=== PATIENT | female | born 1995 | race American Indian/Alaskan Native ===

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

== ENCOUNTER 2017-01-27 19:11 | Inpatient (IN) | payer MEDICAID ==
[2017-01-27] MEDS ORDERED: NORCO 5/325 ONE (20:28)
[2017-01-27] MEDS ORDERED: NORCO 5/325 PO ONE (20:29)
[2017-01-27 20:49] LABS: Basophils % (Auto) 0.3 % (0.0-1.8); Eosinophils % (Auto) 1.4 % (0.0-4.3); Hematocrit 38.4 % (30.3-42.9); Hemoglobin 12.3 gm/dl (10.1-14.3); Mean Corpuscular HGB Conc 32 % (30-34); Mean Corpuscular Hemoglobin 27 pg (28-32); Mean Corpuscular Volume 85 fl (79-97); Platelet Count 221 K/mm3 (140-440); Red Blood Count 4.52 M/mm3 (3.65-5.03); Red Cell Distribution Width 12.6 % (13.2-15.2); White Blood Count 13.2 K/mm3 (4.5-11.0)
[2017-01-27 21:04] LABS: Alanine Aminotransferase 33 units/L (7-56); Albumin 4.3 g/dL (3.9-5); Albumin/Globulin Ratio 1.3 %; Alkaline Phosphatase 65 units/L (35-129); Anion Gap 19 mmol/L; BUN/Creatinine Ratio 24.28; Blood Urea Nitrogen 17 mg/dL (7-17); Calcium 8.9 mg/dL (8.4-10.2); Carbon Dioxide 25 mmol/L (22-30); Chloride 99.3 mmol/L (98-107); Glucose 88 mg/dL (65-100); Lipase 14 units/L (13-60); Potassium 3.6 mmol/L (3.6-5.0); Sodium 140 mmol/L (137-145); Total Protein 7.7 g/dL (6.3-8.2)
--- NOTE | 2017-01-27 21:46 | Emergency Department Report ---
HPI - General Chief Complaint: Abdominal Pain Time Seen by Provider: 01/27/17 21:35 - HPI HPI: This is a 21-year-old -Italian female who presents to the emergency department from home with complaint of a 24-hour history of left-sided flank pain that starts in the back and wraps around towards the abdomen. It has been intermittent and the patient has been trying to sleep it off but she keeps waking up with this discomfort. It is been associated with nausea and 3 episodes of vomiting. She tried ibuprofen for her discomfort without any relief. The patient said that she had some kidney infection versus problem a few months ago when she was with her daughter and says that she was told that the fetus at that time was in a weird position that was pressing up on her kidney and that she would most likely need some type of surgical intervention and what sounds like a nephrostomy tube. However the patient refused this and left the hospital and everything resolved on its own. Since yesterday the patient has been having some burning and pain with urination and some difficulty urinating. She denies any fever, hematuria, vaginal bleeding, vaginal discharge. She says she is currently on her menstrual cycle. She does not have a primary care physician. No recent travel or sick contacts at home. ED Past Medical Hx - Past Medical History Hx Hypertension: No Hx Congestive Heart Failure: No Hx Diabetes: No Hx Deep Vein Thrombosis: No Hx Renal Disease: Yes (hospitalized- pyelonephritis in x 4 days) Hx Sickle Cell Disease: No Hx Seizures: No Hx Asthma: No Hx COPD: No Hx HIV: No Additional medical history: Vaginal 7 weeks ago - Social History Smoking Status: Current Every Day Smoker - Medications Home Medications: Home Medications Medication Instructions Recorded Confirmed Last Taken Type No Known Home Medications [No 01/27/17 01/27/17 Unknown History Reported Home Medications] ED Review of Systems ROS: Stated complaint: FLANK PAIN/VOMITING Other details as noted in HPI Comment: All other systems reviewed and negative Constitutional: denies: chills, fever Eyes: denies: eye pain, eye discharge, vision change ENT: denies: ear pain, throat pain Respiratory: denies: cough, shortness of breath, wheezing Cardiovascular: denies: chest pain, palpitations Gastrointestinal: abdominal pain, nausea, vomiting Genitourinary: dysuria. denies: discharge Musculoskeletal: back pain. denies: arthralgia Skin: denies: rash, lesions Neurological: denies: headache, weakness, paresthesias Physical Exam - Physical Exam Vital Signs: Vital Signs 01/27/17 01/27/17 01/27/17 19:30 20:18 20:32 Temperature 98.3 F 98.3 F Pulse Rate 100 H 100 H Respiratory 20 20 20 Rate Blood Pressure 127/79 Blood Pressure 127/79 [Right] O2 Sat by Pulse 100 100 Oximetry 01/27/17 01/27/17 21:26 21:27 Temperature 98.5 F Pulse Rate Respiratory 18 Rate Blood Pressure Blood Pressure [Right] O2 Sat by Pulse 98 Oximetry Physical Exam: GENERAL: The patient is well-developed well-nourished. HEENT: Normocephalic. Atraumatic. Extraocular motions are intact. Patient has moist mucous membranes. NECK: Supple. Trachea is midline. CHEST/LUNGS: Clear to auscultation. There is no respiratory distress noted. HEART/CARDIOVASCULAR: Regular. There is no tachycardia. There is no gallop rub or murmur. ABDOMEN: Abdomen is soft. There is reproducible left lower quadrant abdominal and left flank pain to palpation. No guarding or rebound tenderness. Patient has normal bowel sounds. There is no abdominal distention. SKIN: Skin is warm and dry. NEURO: The patient is awake, alert, and oriented. The patient is cooperative. The patient has no focal neurologic deficits. The patient has normal speech. MUSCULOSKELETAL: There is no tenderness or deformity. There is no limitation range of motion. There is no evidence of acute injury. BACK: No midline thoracic or lumbar tenderness to palpation or deformity. There is positive left-sided CVA tenderness to palpation. ED Course Vital Signs 01/27/17 01/27/17 01/27/17 19:30 20:18 20:32 Temperature 98.3 F 98.3 F Pulse Rate 100 H 100 H Respiratory 20 20 20 Rate Blood Pressure 127/79 Blood Pressure 127/79 [Right] O2 Sat by Pulse 100 100 Oximetry 01/27/17 01/27/17 21:26 21:27 Temperature 98.5 F Pulse Rate Respiratory 18 Rate Blood Pressure Blood Pressure [Right] O2 Sat by Pulse 98 Oximetry ED Medical Decision Making - Lab Data Result diagrams: 01/27/17 20:35 01/27/17 20:35 - Radiology Data Radiology results: report reviewed EXAM: US RENAL BILAT HISTORY: left flank pain TECHNIQUE: Real-time sonography was performed of the kidneys and images are submitted for interpretation. PRIORS: None. FINDINGS: The right kidney appears normal measuring 11.2 x 4.3 x 5.2 cm. The spleen appears normal. There is moderate left hydronephrosis. The left kidney measures 12.2 x 6.5 x 6.1 cm. There are no focal renal lesions. IMPRESSION: Moderate left hydronephrosis. PROCEDURE: CT ABDOMEN PELVIS W CON TECHNIQUE: Computerized axial tomography of the abdomen and pelvis was performed after the IV injection of iodinated nonionic contrast. HISTORY: Flank pain COMPARISON: No prior studies are available for comparison. FINDINGS: Visualized lower thorax: No significant abnormality. Liver: Normal size and attenuation. Spleen: Normal size and attenuation. Gallbladder and biliary system: Normal. Pancreas: Normal. Adrenals: Normal. Kidneys: There is significant left hydronephrosis and hydroureter down to a 5 millimeter stone at the left ureteral vesical junction. The right collecting system is normal.. GI tract: The stomach is normal. The small bowel has a normal caliber. No obstruction, ileus or enteritis. There is significant fecal debris throughout the colon. Is normal.. Lymph nodes and mesentery: Normal. Vasculature: Normal. Bladder: Normal. Reproductive organs: The uterus is normal. There is minimal fluid in the lower pelvis. There are follicular cysts on each ovary.. Peritoneum: No free fluid. Musculoskeletal structures: No significant abnormality. Other: None. IMPRESSION: Significant left hydronephrosis and hydroureter down to a 5 millimeter stone at the left ureteral vesical junction. - Medical Decision Making 21-year-old female presents to the emergency department with some left-sided flank, abdominal and back pain, dysuria, trouble urinating, nausea and some vomiting since yesterday. Patient doesn't fact have a significant urinary tract infection. Ultrasound did not show any calculus but did show significant left-sided hydronephrosis. CT was done that showed a 5 mm stone that was obstructing with ureteral dilation and hydronephrosis that was significant. The patient has a very small habitus so a 5 mm stone may be more obstructing and in someone larger. She is to have discomfort despite the pain medication, IV fluid. For this reason the patient will be admitted to hospital and urology will be consult.. Patient was accepted for admission by the hospitalist, Dr. Rivero. - Differential Diagnosis hydronephrosis, nephrolithiasis, pyelonephritis, colitis Critical Care Time: No Critical care attestation.: If time is entered above; I have spent that time in minutes in the direct care of this critically ill patient, excluding procedure time. ED Disposition Clinical Impression: Nephrolithiasis, Flank pain Hydronephrosis Qualifiers: Hydronephrosis type: with ureteral calculous obstruction Qualified Code(s): N13.2 - Hydronephrosis with renal and ureteral calculous obstruction UTI (urinary tract infection) Qualifiers: Urinary tract infection type: acute cystitis Hematuria presence: with hematuria Qualified Code(s): N30.01 - Acute cystitis with hematuria Nausea & vomiting Qualifiers: Vomiting type: unspecified Vomiting Intractability: non-intractable Qualified Code(s): R11.2 - Nausea with vomiting, unspecified Disposition: -09 OP ADMIT IP TO THIS HOSP Is pt being admited?: Yes Condition: Stable Time of Disposition: 03:35
[2017-01-27 22:03] LABS: Bacteria,Urine 2+ /HPF (Negative); Bilirubin,Urine NEG (Negative); Blood,Urine LG (Negative); Ketones,Urine 20 mg/dL (Negative); Leukocyte Esterase,Urine LG (Negative); Mucus,Urine 3+ /HPF; Nitrite,Urine POS (Negative); Protein,Urine >500 mg/dL (Negative); RBC,Urine > 182.0 /HPF (0.0-6.0); Urobilinogen,Urine < 2.0 mg/dL (<2.0); WBC,Urine > 182.0 /HPF (0.0-6.0)
--- NOTE | 2017-01-27 22:30 | Ultrasound Report ---
FINAL REPORT EXAM: US RENAL BILAT HISTORY: left flank pain TECHNIQUE: Real-time sonography was performed of the kidneys and images are submitted for interpretation. PRIORS: None. FINDINGS: The right kidney appears normal measuring 11.2 x 4.3 x 5.2 cm. The spleen appears normal. There is moderate left hydronephrosis. The left kidney measures 12.2 x 6.5 x 6.1 cm. There are no focal renal lesions. IMPRESSION: Moderate left hydronephrosis.
[2017-01-27] MEDS ORDERED: ROCEPHIN/NS 1 GM/50 ML 1 GM/50 ML BAG IV ONE (22:35)
[2017-01-27] MEDS ORDERED: NACL ONE (22:48)
[2017-01-27] MEDS ORDERED: MORPHINE IV ONE (23:54)
--- NOTE | 2017-01-28 00:47 | Cat Scan Report ---
FINAL REPORT PROCEDURE: CT ABDOMEN PELVIS W CON TECHNIQUE: Computerized axial tomography of the abdomen and pelvis was performed after the IV injection of iodinated nonionic contrast. HISTORY: Flank pain COMPARISON: No prior studies are available for comparison. FINDINGS: Visualized lower thorax: No significant abnormality. Liver: Normal size and attenuation. Spleen: Normal size and attenuation. Gallbladder and biliary system: Normal. Pancreas: Normal. Adrenals: Normal. Kidneys: There is significant left hydronephrosis and hydroureter down to a 5 millimeter stone at the left ureteral vesical junction. The right collecting system is normal.. GI tract: The stomach is normal. The small bowel has a normal caliber. No obstruction, ileus or enteritis. There is significant fecal debris throughout the colon. Is normal.. Lymph nodes and mesentery: Normal. Vasculature: Normal. Bladder: Normal. Reproductive organs: The uterus is normal. There is minimal fluid in the lower pelvis. There are follicular cysts on each ovary.. Peritoneum: No free fluid. Musculoskeletal structures: No significant abnormality. Other: None. IMPRESSION: Significant left hydronephrosis and hydroureter down to a 5 millimeter stone at the left ureteral vesical junction.
[2017-01-28] MEDS ORDERED: NACL 0.9% 1000 ML 1,000 ML IV ONE (01:02)
[2017-01-28] MEDS ORDERED: NACL 0.9% 1000 ML 1,000 ML ONE (01:27)
[2017-01-28] MEDS ORDERED: MORPHINE IV ONE (04:12)
--- NOTE | 2017-01-28 04:12 | History and Physical Report ---
History of Present Illness Date of examination: 01/28/17 Date of admission: 01/28/17 01:01 Chief complaint: Left Flank pain for 1 day. History of present illness: 21-year-old -[place] female who presents to the emergency department from home with complaint of a 24-hour history of left-sided flank pain that radiates to the back . It has been intermittent and the patient has been trying to sleep it off but she keeps waking up with this discomfort. It is been associated with nausea and 3 episodes of vomiting.Pain is 10 on scale of 1 to 10. She tried ibuprofen for her discomfort without any relief. The patient said that she had some kidney infection versus problem a few months ago when she was with her daughter and says that she was told that the fetus at that time was in a weird position that was pressing up on her kidney and that she would most likely need some type of surgical intervention and what sounds like a nephrostomy tube. However the patient refused this and left the hospital and everything resolved on its own. Since yesterday the patient has been having some burning and pain with urination and some difficulty urinating. She denies any fever, hematuria, vaginal bleeding, vaginal discharge. She says she is currently on her menstrual cycle. She does not have a primary care physician. No recent travel or sick contacts at home. ED Past Medical Hx - Past Medical History Hx Hypertension: No Hx Congestive Heart Failure: No Hx Diabetes: No Hx Deep Vein Thrombosis: No Hx Renal Disease: Yes (hospitalized- pyelonephritis in x 4 days) Hx Sickle Cell Disease: No Hx Seizures: No Hx Asthma: No Hx COPD: No Hx HIV: No Additional medical history: Vaginal 7 weeks ago - Social History Smoking Status: Current Every Day Smoker PSH none FH HTN - Medications Home Medications: Home Medications Medication Instructions Recorded Confirmed Last Taken Type No Known Home Medications [No 01/27/17 01/27/17 Unknown History Reported Home Medications] ED Review of Systems ROS: Stated complaint: FLANK PAIN/VOMITING Other details as noted in HPI Comment: All other systems reviewed and negative Constitutional: denies: chills, fever Eyes: denies: eye pain, eye discharge, vision change ENT: denies: ear pain, throat pain Respiratory: denies: cough, shortness of breath, wheezing Cardiovascular: denies: chest pain, palpitations Gastrointestinal: abdominal pain, nausea, vomiting Genitourinary: dysuria. denies: discharge Musculoskeletal: back pain. denies: arthralgia Skin: denies: rash, lesions Neurological: denies: headache, weakness, paresthesias Past History Past Medical History: other (Pyelonephritis x1) Past Surgical History: No surgical history Social history: smoking (ppd) Medications and Allergies Allergies Allergy/AdvReac Type Severity Reaction Status Date / Time No Known Allergies Allergy Verified 04/13/16 00:06 Home Medications Medication Instructions Recorded Confirmed Last Taken Type No Known Home Medications [No 01/27/17 01/27/17 Unknown History Reported Home Medications] Active Meds: Active Medications Sodium Chloride (Nacl 0.9% 1000 Ml) 1,000 mls @ 125 mls/hr IV ONCE ONE Stop: 01/28/17 09:01 Last Admin: 01/28/17 01:35 Dose: 125 mls/hr Review of Systems All systems: negative Exam - Constitutional Vitals: Temp Pulse Resp BP Pulse Ox 98.4 F 85 18 114/74 100 01/28/17 02:09 01/28/17 02:01/28/17 02:09 01/28/17 02:01/28/17 02:09 General appearance: Present: no acute distress, well-nourished - EENT Eyes: Present: PERRL ENT: hearing intact, clear oral mucosa - Neck Neck: Present: supple, normal ROM - Respiratory Respiratory effort: normal Respiratory: bilateral: CTA - Cardiovascular Heart rate: 76 Rhythm: regular Heart Sounds: Present: S1 & S2. Absent: rub, click - Extremities Extremities: pulses symmetrical, No edema Peripheral Pulses: within normal limits - Abdominal General gastrointestinal: Present: soft, non-tender, non-distended, normal bowel sounds Female genitourinary: Present: normal - Rectal Rectal Exam: deferred - Integumentary Integumentary: Present: clear, warm, dry - Musculoskeletal Musculoskeletal: gait normal, strength equal bilaterally - Psychiatric Psychiatric: appropriate mood/affect, intact judgment & insight - Neurologic Neurologic: CNII-XII intact, moves all extremities - Allied Health Allied health notes reviewed: nursing, case management Results - Labs CBC & Chem 7: 01/27/17 20:35 01/27/17 20:35 Labs: Laboratory Last Values WBC 13.2 K/mm3 (4.5-11.0) H 01/27/17 20:35 RBC 4.52 M/mm3 (3.65-5.03) 01/27/17 20:35 Hgb 12.3 gm/dl (10.1-14.3) 01/27/17 20:35 Hct 38.4 % (30.3-42.9) 01/27/17 20:35 MCV 85 fl (79-97) 01/27/17 20:35 MCH 27 pg (28-32) L 01/27/17 20:35 MCHC 32 % (30-34) 01/27/17 20:35 RDW 12.6 % (13.2-15.2) L 01/27/17 20:35 Plt Count 221 K/mm3 (140-440) 01/27/17 20:35 Lymph % (Auto) 11.6 % (13.4-35.0) L 01/27/17 20:35 Pre[place] % (Auto) 7.7 % (0.0-7.3) H 01/27/17 20:35 Eos % (Auto) 1.4 % (0.0-4.3) 01/27/17 20:35 Baso % (Auto) 0.3 % (0.0-1.8) 01/27/17 20:35 Lymph # 1.5 K/mm3 (1.2-5.4) 01/27/17 20:35 Preble # 1.0 K/mm3 (0.0-0.8) H 01/27/17 20:35 Eos # 0.2 K/mm3 (0.0-0.4) 01/27/17 20:35 Baso # 0.0 K/mm3 (0.0-0.1) 01/27/17 20:35 Seg Neutrophils % 79.0 % (40.0-70.0) H 01/27/17 20:35 Seg Neutrophils # 10.4 K/mm3 (1.8-7.7) H 01/27/17 20:35 Sodium 140 mmol/L (137-145) 01/27/17 20:35 Potassium 3.6 mmol/L (3.6-5.0) 01/27/17 20:35 Chloride 99.3 mmol/L (98-107) 01/27/17 20:35 Carbon Dioxide 25 mmol/L (22-30) 01/27/17 20:35 Anion Gap 19 mmol/L 01/27/17 20:35 BUN 17 mg/dL (7-17) 01/27/17 20:35 Creatinine 0.7 mg/dL (0.7-1.2) 01/27/17 20:35 Estimated GFR > 60 ml/min 01/27/17 20:35 BUN/Creatinine Ratio 24.28 % 01/27/17 20:35 Glucose 88 mg/dL (65-100) 01/27/17 20:35 Calcium 8.9 mg/dL (8.4-10.2) 01/27/17 20:35 Total Bilirubin 0.80 mg/dL (0.1-1.2) 01/27/17 20:35 AST 27 units/L (5-40) 01/27/17 20:35 ALT 33 units/L (7-56) 01/27/17 20:35 Alkaline Phosphatase 65 units/L (35-129) 01/27/17 20:35 Total Protein 7.7 g/dL (6.3-8.2) 01/27/17 20:35 Albumin 4.3 g/dL (3.9-5) 01/27/17 20:35 Albumin/Globulin Ratio 1.3 % 01/27/17 20:35 Lipase 14 units/L (13-60) 01/27/17 20:35 HCG, Qual Negative (Negative) 01/27/17 20:35 Urine Color Red (Yellow) 01/27/17 21:42 Urine Turbidity Turbid (Clear) 01/27/17 21:42 Urine pH 6.0 (5.0-7.0) 01/27/17 21:42 Ur Specific [place] 1.022 (1.003-1.030) 01/27/17 21:42 Urine Protein >500 mg/dL (Negative) 01/27/17 21:42 Urine Glucose (UA) Neg mg/dL (Negative) 01/27/17 21:42 Urine Ketones 20 mg/dL (Negative) 01/27/17 21:42 Urine Blood Lg (Negative) 01/27/17 21:42 Urine Nitrite Pos (Negative) 01/27/17 21:42 Urine Bilirubin Neg (Negative) 01/27/17 21:42 Urine Urobilinogen < 2.0 mg/dL (<2.0) 01/27/17 21:42 Ur Leukocyte Esterase Lg (Negative) 01/27/17 21:42 Urine WBC (Auto) > 182.0 /HPF (0.0-6.0) H 01/27/17 21:42 Urine RBC (Auto) > 182.0 /HPF (0.0-6.0) 01/27/17 21:42 Urine Bacteria (Auto) 2+ /HPF (Negative) 01/27/17 21:42 Urine WBC Clumps 3+ /HPF 01/27/17 21:42 Urine Mucus 3+ /HPF 01/27/17 21:42 Short CBC 01/27/17 Range/Units 20:35 WBC 13.2 H (4.5-11.0) K/mm3 Hgb 12.3 (10.1-14.3) gm/dl Hct 38.4 (30.3-42.9) % Plt Count 221 (140-440) K/mm3 BMP 01/27/17 20:35 Sodium 140 Potassium 3.6 Chloride 99.3 Carbon Dioxide 25 BUN 17 Creatinine 0.7 Glucose 88 Calcium 8.9 Liver Function 01/27/17 Range/Units 20:35 Total Bilirubin 0.80 (0.1-1.2) mg/dL AST 27 (5-40) units/L ALT 33 (7-56) units/L Alkaline Phosphatase 65 (35-129) units/L Albumin 4.3 (3.9-5) g/dL Urine 01/27/17 Range/Units 21:42 Urine Color Red (Yellow) Urine pH 6.0 (5.0-7.0) Ur Specific [place] 1.022 (1.003-1.030) Urine Protein >500 (Negative) mg/dL Urine Glucose (UA) Neg (Negative) mg/dL - Imaging and Cardiology CT scan - abdomen: report reviewed (significant left hydronephrosis and hydroureter down to a 5 mm stone at the left utero vesicle junction.) Imaging and Cardiology: Renal ultrasound shows moderate left hydronephrosis Assessment and Plan Advance Directives: Yes (full code) VTE prophylaxis?: Chemical Plan of care discussed with patient/family: Yes - Patient Problems (1) Hydronephrosis Current Visit: Yes Status: Acute Qualifiers: Hydronephrosis type: with ureteral calculous obstruction Qualified Code(s) : N13.2 - Hydronephrosis with renal and ureteral calculous obstruction Plan to address problem: Left hydronephrosis secondary to renal calculus at uro vesical junction. Renal calculus is about 5 mm in size. Patient also has urinary tract infection. Patient may need urological intervention. We will try IV fluids and IV Dilaudid for the time being. Urology consult by Dr. Iraheta and Dr. Riddle requested. (2) UTI (urinary tract infection) Current Visit: Yes Status: Acute Qualifiers: Urinary tract infection type: acute cystitis Hematuria presence: without hematuria Indwelling urinary catheter type: I Encounter type: E Qualified Code(s): N30.00 - Acute cystitis without hematuria Plan to address problem: IV Rocephin 1 g IV piggyback every 24 hours pending cultures. (3) Nicotine dependence Current Visit: Yes Status: Acute Qualifiers: Nicotine product type: cigarettes Substance use status: S Plan to address problem: Nicotine patch ordered and patient counseled. (4) DVT prophylaxis Current Visit: Yes Status: Acute Plan to address problem: Lovenox 40 mg subcutaneous started.
[2017-01-28] MEDS ORDERED: DULCOLAX PR PRN (04:30)
[2017-01-28] MEDS ORDERED: AMBIEN PO PRN (04:30)
[2017-01-28] MEDS ORDERED: MILK OF MAGNESIA PO PRN (04:30)
[2017-01-28] MEDS ORDERED: TYLENOL PO PRN (04:30)
--- NOTE | 2017-01-28 07:53 | Admit Criteria Form ---
Admission Criteria Documentation: RENAL COLIC AND KIDNEY STONES Clinical Indications for Admission to Inpatient Care ( Place 'X' for any and all applicable criteria): Admission is indicated for ANY ONE of the following (1)(2)(3)(4): [X]I. Inpatient admission required rather than observation care (Also use Renal Colic and Kidney Stones: Observation Care Criteria as appropriate) because of ANY ONE of the following: [X]a) Severe pain requiring acute inpatient management [ ]b) Urinary tract infection identified [ ]c) Vomiting that is severe or persistent [ ]d) IV fluid required rather than oral rehydration to replace significant ongoing (eg, for greater than 24 hours) losses (greater than 200 mL/hr or 3 L/m2 per day) [ ]e) Percutaneous or open drainage (eg, abscess, biliary tract) procedures [ ]f) Other condition, treatment or monitoring requiring inpatient admission [ ]II. Impending acute renal failure [ ]III. Bilateral obstruction [ ]IV. Single kidney with obstruction [ ]V. Transplanted kidney with obstruction [ ]. Possible open surgical procedure needed (eg, pyonephrosis, stone removal not amendable to other means) [ ]VII. Hemodynamic instability Extended stay beyond goal length of stay may be needed for(2)(3)(31): [ ]a) Failed initial stone removal (32) [ ]b) Pyonephrosis [ ]c) Obstructive uropathy with urinary tract infection [ ]d) Procedure complications [ ]e) Comorbidities (22) The original [email or web address] content created by [employer] has been revised. The portions of the content which have been revised are identified through the use of italic text or in bold, and [facility] has neither reviewed nor approved the modified material. All other unmodified content is copyright [email or web address]. Please see references footnoted in the original [email or web address] edition 2016 Admission Criteria Met: Yes
[2017-01-28] MEDS: DILAUDID IV PRN ×5 (08:10→21:37)
--- NOTE | 2017-01-28 10:00 | Progress Note ---
Assessment and Plan Assessment and plan: 21-year-old -Ind[place] female who presents to the emergency department from home with complaint of a 24-hour history of left-sided flank pain that radiates to the back . She was found to have sepsis due to UTI and obstructive stone in the left ureter with associated hydronephrosis CT abdomen and pelvis Significant left hydronephrosis and hydroureter down to a 5 mm stone at the left ureterovesical junction Sepsis/UTI Continue sepsis protocol Continue antibiotics continue IV fluids Obstructive uropathy Due to nephrolithiasis, urology has been consulted, awaiting a recommendations Nicotine dependence Patient has been counseled, nicotine patch ordered dvt ppx: early ambulation History Interval history: She continues to complain of left flank pain, 4 out of 10, radiates to her mid back, much improved from yesterday, no improving or exacerbating factors, denies fever, denies chills Hospitalist Physical - Physical exam Narrative exam: General: Patient appears well in no distress HEENT: MMM, EOMI cardiac: S1-S2 heard lungs: clear to auscultation, abdomen: soft, nontender, nondistended bowel sounds positive extremities: no edema clubbing or cyanosis Skin: no rash or lesion Neuro: no focal deficit Psych: appropriate behavior and mood, cognition intact - Constitutional Vitals: Temp Pulse Resp BP Pulse Ox 98.4 F 85 18 114/74 100 01/28/17 02:09 01/28/17 02:09 01/28/17 02:09 01/28/17 02:09 01/28/17 02:09 General appearance: Present: no acute distress, well-nourished Results - Labs CBC & Chem 7: 01/27/17 20:35 01/27/17 20:35 Labs: Laboratory Last Values WBC 13.2 K/mm3 (4.5-11.0) H 01/27/17 20:35 RBC 4.52 M/mm3 (3.65-5.03) 01/27/17 20:35 Hgb 12.3 gm/dl (10.1-14.3) 01/27/17 20:35 Hct 38.4 % (30.3-42.9) 01/27/17 20:35 MCV 85 fl (79-97) 01/27/17 20:35 MCH 27 pg (28-32) L 01/27/17 20:35 MCHC 32 % (30-34) 01/27/17 20:35 RDW 12.6 % (13.2-15.2) L 01/27/17 20:35 Plt Count 221 K/mm3 (140-440) 01/27/17 20:35 Lymph % (Auto) 11.6 % (13.4-35.0) L 01/27/17 20:35 [place] % (Auto) 7.7 % (0.0-7.3) H 01/27/17 20:35 Eos % (Auto) 1.4 % (0.0-4.3) 01/27/17 20:35 Baso % (Auto) 0.3 % (0.0-1.8) 01/27/17 20:35 Lymph # 1.5 K/mm3 (1.2-5.4) 01/27/17 20:35 [place] # 1.0 K/mm3 (0.0-0.8) H 01/27/17 20:35 Eos # 0.2 K/mm3 (0.0-0.4) 01/27/17 20:35 Baso # 0.0 K/mm3 (0.0-0.1) 01/27/17 20:35 Seg Neutrophils % 79.0 % (40.0-70.0) H 01/27/17 20:35 Seg Neutrophils # 10.4 K/mm3 (1.8-7.7) H 01/27/17 20:35 Sodium 140 mmol/L (137-145) 01/27/17 20:35 Potassium 3.6 mmol/L (3.6-5.0) 01/27/17 20:35 Chloride 99.3 mmol/L (98-107) 01/27/17 20:35 Carbon Dioxide 25 mmol/L (22-30) 01/27/17 20:35 Anion Gap 19 mmol/L 01/27/17 20:35 BUN 17 mg/dL (7-17) 01/27/17 20:35 Creatinine 0.7 mg/dL (0.7-1.2) 01/27/17 20:35 Estimated GFR > 60 ml/min 01/27/17 20:35 BUN/Creatinine Ratio 24.28 % 01/27/17 20:35 Glucose 88 mg/dL (65-100) 01/27/17 20:35 Calcium 8.9 mg/dL (8.4-10.2) 01/27/17 20:35 Total Bilirubin 0.80 mg/dL (0.1-1.2) 01/27/17 20:35 AST 27 units/L (5-40) 01/27/17 20:35 ALT 33 units/L (7-56) 01/27/17 20:35 Alkaline Phosphatase 65 units/L (35-129) 01/27/17 20:35 Total Protein 7.7 g/dL (6.3-8.2) 01/27/17 20:35 Albumin 4.3 g/dL (3.9-5) 01/27/17 20:35 Albumin/Globulin Ratio 1.3 % 01/27/17 20:35 Lipase 14 units/L (13-60) 01/27/17 20:35 HCG, Qual Negative (Negative) 01/27/17 20:35 Urine Color Red (Yellow) 01/27/17 21:42 Urine Turbidity Turbid (Clear) 01/27/17 21:42 Urine pH 6.0 (5.0-7.0) 01/27/17 21:42 Ur Specific [place] 1.022 (1.003-1.030) 01/27/17 21:42 Urine Protein >500 mg/dL (Negative) 01/27/17 21:42 Urine Glucose (UA) Neg mg/dL (Negative) 01/27/17 21:42 Urine Ketones 20 mg/dL (Negative) 01/27/17 21:42 Urine Blood Lg (Negative) 01/27/17 21:42 Urine Nitrite Pos (Negative) 01/27/17 21:42 Urine Bilirubin Neg (Negative) 01/27/17 21:42 Urine Urobilinogen < 2.0 mg/dL (<2.0) 01/27/17 21:42 Ur Leukocyte Esterase Lg (Negative) 01/27/17 21:42 Urine WBC (Auto) > 182.0 /HPF (0.0-6.0) H 01/27/17 21:42 Urine RBC (Auto) > 182.0 /HPF (0.0-6.0) 01/27/17 21:42 Urine Bacteria (Auto) 2+ /HPF (Negative) 01/27/17 21:42 Urine WBC Clumps 3+ /HPF 01/27/17 21:42 Urine Mucus 3+ /HPF 01/27/17 21:42 - Imaging and Cardiology CT scan - abdomen: image reviewed (hydro-nephrosis on the left side obstructive stone)
--- NOTE | 2017-01-28 11:14 | Progress Note ---
Subjective Date of service: 01/28/17 Interval history: 21-year-old -Swazi female who presents to the emergency department from home with complaint of a 24-hour history of left-sided flank pain that radiates to the back . It has been intermittent and the patient has been trying to sleep it off but she keeps waking up with this discomfort. It is been associated with nausea and 3 episodes of vomiting.Pain is 10 on scale of 1 to 10. She tried ibuprofen for her discomfort without any relief. The patient said that she had some kidney infection versus problem a few months ago when she was with her daughter and says that she was told that the fetus at that time was in a weird position that was pressing up on her kidney and that she would most likely need some type of surgical intervention and what sounds like a nephrostomy tube. However the patient refused this and left the hospital and everything resolved on its own. Since yesterday the patient has been having some burning and pain with urination and some difficulty urinating. She denies any fever, hematuria, vaginal bleeding, vaginal discharge. She says she is currently on her menstrual cycle. She does not have a primary care physician. No recent travel or sick contacts at home. PT HAD BREAKFAST PER NURSE CTAP 5MM LEFT URETERAL STONE A/P 5MM LEFT URETERAL STONE HYDRATE TODAY CONSIDER URETEROSCOPY TOMORROW IF PAIN PERSIST FAMILY AT BEDSIDE WRITTEN INFO GIVEN Objective - Constitutional Vitals: Vital Signs - 12hr 01/28/17 02:09 Temperature 98.4 F Pulse Rate [ 85 Radial] Respiratory 18 Rate Blood Pressure 114/74 [Left Radial Artery] O2 Sat by Pulse 100 Oximetry - Labs CBC & Chem 7: 01/27/17 20:35 01/27/17 20:35
[2017-01-28] MEDS: HABITROL TD SCH (11:23)
[2017-01-28] MEDS: PEPCID PO SCH ×2 (11:23→21:34)
[2017-01-28] MEDS: D5NS 1,000 ML IV SCH ×2 (11:24→18:27)
[2017-01-28] MEDS: ZOFRAN IV PRN ×4 (11:29→21:37)
[2017-01-28] MEDS: NORCO 10/325 PO PRN (16:21)
--- NOTE | 2017-01-28 16:35 | Anesthesia Consultation ---
Anesthesia Consult and Med Hx Date of service: 01/28/17 - Airway Anesthetic Teeth Evaluation: Good ROM Head & Neck: Adequate Mental/Hyoid Distance: Adequate Mallampati Class: Class II Intubation Access Assessment: Probably Good - Pulmonary Exam CTA: Yes - Cardiac Exam Cardiac Exam: RRR - Pre-Operative Health Status ASA Pre-Surgery Classification: ASA2 Proposed Anesthetic Plan: General - Pulmonary Hx Smoking: Yes (1 pack/day) Hx Asthma: No COPD: No Hx Pneumonia: No - Cardiovascular System Hx Hypertension: No - Central Nervous System Hx Seizures: No Hx Psychiatric Problems: No - Gastrointestinal Hx Gastroesophageal Reflux Disease: Yes (acid refulx-occas. "waits till it passes", no meds) - Endocrine Hx Renal Disease: Yes (hospitalized- pyelonephritis in x 4 days) Hx End Stage Renal Disease: No Hx Hypothyroidism: No Hx Hyperthyroidism: No - Hematic Hx Anemia: Yes Hx Sickle Cell Disease: No - Other Systems Hx Alcohol Use: No - Additional Comments Anesthesia Medical History Comments: when I walked into the room the patient had just thrown up, second time today. Had fluid around lungs or heart when but not sure which. CAT scan today, lungs clear.
[2017-01-28] MEDS: ROCEPHIN/NS 2 GM/100 ML 2 GM/100 ML BAG IV SCH (21:34)
[2017-01-29] MEDS ORDERED: TYLENOL PR PRN (01:31)
[2017-01-29] MEDS: DILAUDID IV PRN ×5 (01:56→21:59)
[2017-01-29] MEDS: ZOFRAN IV PRN ×4 (01:56→21:58)
[2017-01-29] MEDS: NACL 0.9% 1000 ML 1,000 ML IV SCH ×3 (03:09→22:46)
--- NOTE | 2017-01-29 04:59 | Consultation ---
REASON FOR CONSULTATION: Left ureteral stone. REFERRING PHYSICIAN: Dr. Sarika Jimenez HISTORY OF PRESENT ILLNESS: This patient is a 21-year-old female presented to the Emergency Room with the left flank pain that has been intermittent. CT of abdomen and pelvis revealed a 5 mm distal stone. She reports pain is a 10 on a scale from 1 to 10. She was admitted for pain control. PAST MEDICAL HISTORY: Pyelonephritis during her , she delivered approximately 2 months ago. PAST SURGICAL HISTORY: Unremarkable. MEDICATIONS: No medications. ALLERGIES: She has no known drug allergies. PHYSICAL EXAMINATION: GENERAL: She is alert and oriented. VITAL SIGNS: Temperature 98.4, respirations 18, pulse 85, BP 114/78. BACK: No CVA tenderness. ABDOMEN: Soft. LABORATORY DATA: BUN and creatinine of 17 and 0.7 respectively. Hemoglobin and hematocrit of 12 and 38 respectively. White count 13,000, platelets 221,000. ASSESSMENT: Left ureteral stone, 5 mm distal, the patient ____ today. PLAN: We will hydrate, discussed options. Written information was given. If her stone has not passed, will tentatively set up for ureteroscopy tomorrow. JOB# [id number] [facility]
[2017-01-29] MEDS ORDERED: PEPCID PO NR (06:00)
[2017-01-29] MEDS ORDERED: VERSED IV NR (06:00)
[2017-01-29] MEDS ORDERED: DILAUDID ONE (07:19)
[2017-01-29] MEDS ORDERED: DIPRIVAN 10 MG/ML IV ONE (07:19)
[2017-01-29] MEDS ORDERED: ZOFRAN ONE (07:20)
[2017-01-29] MEDS ORDERED: DECADRON ONE (07:20)
[2017-01-29] MEDS ORDERED: XYLOCAINE MPF 2% ONE (07:20)
[2017-01-29] MEDS ORDERED: WATER FOR IRRIG STERILE IR ONE ×2 (08:07)
--- NOTE | 2017-01-29 08:40 | Post Operative Note ---
Pre-op diagnosis: left distal ureteral stone Post-op diagnosis: other (signigificant patchy edema of bladder & left ureter) Procedure: cysto, rpg, left ureteroscopy, stent with internal string (STAGED PROCEDURE, WILL NEED URETEROSCOPY, LASER, STONE EXTRACTION IN 1-2 WKS AFTER EDEMA HAS RESOLVED) Anesthesia: GETA Surgeon: JUDY SHARP Estimated blood loss: none Pathology: none Condition: stable Disposition: PACU (OK TO GO HOME WITH DOREEN OBREGON, POST OP INFO ON CHART)
--- NOTE | 2017-01-29 10:00 | Post Anesthesia Evaluation ---
- Post Anesthesia Evaluation Patient Participated: Yes Airway Patent: Yes Stable Respiratory Function: Yes Nausea/Vomiting: No Temp > 96.8F: Yes Pain Manageable: Yes Adequeate Hydration: Yes Anesthesia Complications: No
--- NOTE | 2017-01-29 10:07 | Operative Report ---
PREOPERATIVE DIAGNOSIS: Left distal ureteral stone (5 mm). POSTOPERATIVE DIAGNOSES: Left distal ureteral stone (5 mm) with significant ureteral and bladder edema. PROCEDURE: Cystoscopy, bilateral retrograde pyelogram, left ureteroscopy, double-J stent (6 Polish 22 cm with a short internal string) (staged procedure). SURGEON: Dr. Iraheta ANESTHESIA: General. ANESTHESIOLOGIST: Dr. Palumbo ESTIMATED BLOOD LOSS: Minimal. FLUIDS: Crystalloid. COMPLICATIONS: No complications. INDICATIONS: This 21-year-old female, who presented to the Emergency Room with significant left flank pain and vomiting. She just recently delivered 7 to 8 weeks ago spontaneous vaginal delivery. CT of abdomen and pelvis revealed a distal ureteral stone. She was admitted for management, consultation was obtained. The patient had eaten yesterday and therefore could not do her surgery yesterday. She presents today for endoscopic evaluation and discussion with the patient and her daughter and her mother and questions were answered by the patient and her mother. DESCRIPTION OF PROCEDURE: The patient was taken to the operative suite, placed in a supine position. After adequate general anesthesia, placed in a dorsal lithotomy position, prepped and draped in a sterile fashion. Pancystourethroscopy was performed with 22 Polish Storz cystoscope. The patient had significant patchy edema of the bladder. Bilateral retrograde pyelograms were obtained with an 8 Polish Brooke catheter and 8 mL of contrast. No filling defects or obstruction on the right had some mild generalized edema, probably secondary to , left side there was a blockage approximately 2 cm proximal at the ureteral orifice. It was very difficult to get dye past the blockage. Therefore, I stopped multiple attempts to pass a 0.035 and a 0.025 Glidewire through the cystoscope were unsuccessful. Next, using a rigid ____ ureteroscopy into the distal ureteral orifice and the distal ureter again significant edema. I managed to advance the 0.035 Glidewire past the obstruction and place a 6-Polish 22 cm double-J stent, bladder was drained. She was extubated. The plan is broad spectrum antibiotics, pain control to allow her edema to subside and come back for ureteroscopy for stone extraction. I will leave a prescription for Cipro and Export. JOB# [id number] [facility]
[2017-01-29] MEDS: PEPCID PO SCH ×2 (10:09→21:59)
--- NOTE | 2017-01-29 10:23 | Progress Note ---
Assessment and Plan Assessment and plan: Sepsis/UTI Continue sepsis protocol Continue antibiotics continue IV fluids Follow-up blood cultures. Obstructive uropathy CT scan reveals significant left hydronephrosis and hydroureter down to a 5 mm stone at the left ureterovesical junction. Patient is status post cystoscopy, RPG, left ureteroscopy and stent with internal string. Patient when the ureteroscopy, laser, stone extraction in 1-2 weeks after her edema has resolved. Nicotine dependence Patient has been counseled, nicotine patch ordered dvt ppx: early ambulation History Interval history: No new issues overnight except for fever. Hospitalist Physical - Constitutional Vitals: Temp Pulse Resp BP Pulse Ox 97.2 F L 90 12 101/65 100 01/29/17 08:40 01/29/17 09:15 01/29/17 09:15 01/29/17 09:15 01/29/17 09:15 General appearance: Present: no acute distress, well-nourished - EENT Eyes: Present: PERRL, EOM intact ENT: hearing intact, clear oral mucosa, dentition normal - Neck Neck: Present: supple, normal ROM - Respiratory Respiratory effort: normal Respiratory: bilateral: CTA - Cardiovascular Rhythm: regular Heart Sounds: Present: S1 & S2. Absent: gallop, rub - Extremities Extremities: no ischemia, No edema, Full ROM - Abdominal General gastrointestinal: soft, non-tender, non-distended, normal bowel sounds - Integumentary Integumentary: Present: clear, warm, dry - Neurologic Neurologic: CNII-XII intact, moves all extremities Results - Labs CBC & Chem 7: 01/27/17 20:35 01/27/17 20:35 Labs: Laboratory Last Values WBC 13.2 K/mm3 (4.5-11.0) H 01/27/17 20:35 RBC 4.52 M/mm3 (3.65-5.03) 01/27/17 20:35 Hgb 12.3 gm/dl (10.1-14.3) 01/27/17 20:35 Hct 38.4 % (30.3-42.9) 01/27/17 20:35 MCV 85 fl (79-97) 01/27/17 20:35 MCH 27 pg (28-32) L 01/27/17 20:35 MCHC 32 % (30-34) 01/27/17 20:35 RDW 12.6 % (13.2-15.2) L 01/27/17 20:35 Plt Count 221 K/mm3 (140-440) 01/27/17 20:35 Lymph % (Auto) 11.6 % (13.4-35.0) L 01/27/17 20:35 [place] % (Auto) 7.7 % (0.0-7.3) H 01/27/17 20:35 Eos % (Auto) 1.4 % (0.0-4.3) 01/27/17 20:35 Baso % (Auto) 0.3 % (0.0-1.8) 01/27/17 20:35 Lymph # 1.5 K/mm3 (1.2-5.4) 01/27/17 20:35 [place] # 1.0 K/mm3 (0.0-0.8) H 01/27/17 20:35 Eos # 0.2 K/mm3 (0.0-0.4) 01/27/17 20:35 Baso # 0.0 K/mm3 (0.0-0.1) 01/27/17 20:35 Seg Neutrophils % 79.0 % (40.0-70.0) H 01/27/17 20:35 Seg Neutrophils # 10.4 K/mm3 (1.8-7.7) H 01/27/17 20:35 Sodium 140 mmol/L (137-145) 01/27/17 20:35 Potassium 3.6 mmol/L (3.6-5.0) 01/27/17 20:35 Chloride 99.3 mmol/L (98-107) 01/27/17 20:35 Carbon Dioxide 25 mmol/L (22-30) 01/27/17 20:35 Anion Gap 19 mmol/L 01/27/17 20:35 BUN 17 mg/dL (7-17) 01/27/17 20:35 Creatinine 0.7 mg/dL (0.7-1.2) 01/27/17 20:35 Estimated GFR > 60 ml/min 01/27/17 20:35 BUN/Creatinine Ratio 24.28 % 01/27/17 20:35 Glucose 88 mg/dL (65-100) 01/27/17 20:35 Calcium 8.9 mg/dL (8.4-10.2) 01/27/17 20:35 Total Bilirubin 0.80 mg/dL (0.1-1.2) 01/27/17 20:35 AST 27 units/L (5-40) 01/27/17 20:35 ALT 33 units/L (7-56) 01/27/17 20:35 Alkaline Phosphatase 65 units/L (35-129) 01/27/17 20:35 Total Protein 7.7 g/dL (6.3-8.2) 01/27/17 20:35 Albumin 4.3 g/dL (3.9-5) 01/27/17 20:35 Albumin/Globulin Ratio 1.3 % 01/27/17 20:35 Lipase 14 units/L (13-60) 01/27/17 20:35 HCG, Qual Negative (Negative) 01/27/17 20:35 Urine Color Red (Yellow) 01/27/17 21:42 Urine Turbidity Turbid (Clear) 01/27/17 21:42 Urine pH 6.0 (5.0-7.0) 01/27/17 21:42 Ur Specific [place] 1.022 (1.003-1.030) 01/27/17 21:42 Urine Protein >500 mg/dL (Negative) 01/27/17 21:42 Urine Glucose (UA) Neg mg/dL (Negative) 01/27/17 21:42 Urine Ketones 20 mg/dL (Negative) 01/27/17 21:42 Urine Blood Lg (Negative) 01/27/17 21:42 Urine Nitrite Pos (Negative) 01/27/17 21:42 Urine Bilirubin Neg (Negative) 01/27/17 21:42 Urine Urobilinogen < 2.0 mg/dL (<2.0) 01/27/17 21:42 Ur Leukocyte Esterase Lg (Negative) 01/27/17 21:42 Urine WBC (Auto) > 182.0 /HPF (0.0-6.0) H 01/27/17 21:42 Urine RBC (Auto) > 182.0 /HPF (0.0-6.0) 01/27/17 21:42 Urine Bacteria (Auto) 2+ /HPF (Negative) 01/27/17 21:42 Urine WBC Clumps 3+ /HPF 01/27/17 21:42 Urine Mucus 3+ /HPF 01/27/17 21:42
[2017-01-29] MEDS: NORCO 10/325 PO PRN ×2 (12:37→18:37)
[2017-01-29] MEDS: HABITROL TD SCH (13:50)
[2017-01-29 14:00] LABS: Hematocrit 32.7 % (30.3-42.9); Hemoglobin 10.5 gm/dl (10.1-14.3); Mean Corpuscular HGB Conc 32 % (30-34); Mean Corpuscular Hemoglobin 27 pg (28-32); Mean Corpuscular Volume 84 fl (79-97); Platelet Count 194 K/mm3 (140-440); Red Blood Count 3.92 M/mm3 (3.65-5.03); Red Cell Distribution Width 12.6 % (13.2-15.2); White Blood Count 12.2 K/mm3 (4.5-11.0)
[2017-01-29 14:15] LABS: Alanine Aminotransferase 16 units/L (7-56); Albumin 3.4 g/dL (3.9-5); Alkaline Phosphatase 60 units/L (35-129); Anion Gap 15 mmol/L; BUN/Creatinine Ratio 8.33; Blood Urea Nitrogen 5 mg/dL (7-17); Calcium 8.7 mg/dL (8.4-10.2); Carbon Dioxide 23 mmol/L (22-30); Chloride 103.8 mmol/L (98-107); Glucose 185 mg/dL (65-100); Potassium 3.7 mmol/L (3.6-5.0); Sodium 138 mmol/L (137-145); Total Protein 6.7 g/dL (6.3-8.2)
[2017-01-29 14:51] LABS: Basophils % (Manual) 0 % (0.0-1.8); Blastocytes % (Manual) 0 %; Diff Status Complete; Eosinophils % (Manual) 0 % (0.0-4.3); RBC Morphology Normal
[2017-01-29] MEDS: ROCEPHIN/NS 2 GM/100 ML 2 GM/100 ML BAG IV SCH (22:51)
--- NOTE | 2017-01-30 07:43 | Discharge Summary ---
Providers - Providers Date of Admission: 01/28/17 01:01 Date of discharge: 01/30/17 Attending physician: BELLA HERNÁNDEZ 01/28/17 04:30 Consult to Physician [CONS] Routine Consulting Provider: JUDY SHARP Reason For Exam: hydronephrosis and ureteral stone Place consult to:: n/a Notified:: n/a Comment:: consult to be called by doctor to doctor Primary care physician: BRICK STACKER Hospitalization Reason for admission: left flank pain Condition: Stable Hospital course: 21-year-old -[place] female who presents to the emergency department from home with complaint of a 24-hour history of left-sided flank pain that radiates to the back . She was found to have sepsis due to UTI and obstructive stone in the left ureter with associated hydronephrosis. CT scan of the abdomen and pelvis reveals significant left hydronephrosis and hydroureter down to a 5 mm stone at the left ureterovesical junction. Patient seen by urology in consultation and underwent cystoscopy, RPG, left ureteroscopy and stent with internal string. Patient will need further follow-up with ureteroscopy, laser and stone extraction in 1-2 weeks after her edema has resolved. Patient will be discharged home with antibiotics and pain medication. Dedicated discharge time 32 minutes. Disposition: TO HOME OR SELFCARE Time spent for discharge: 32 - Discharge Diagnoses (1) Sepsis Status: Acute Qualifiers: Sepsis type: S (2) Flank pain Status: Acute (3) Hydronephrosis Status: Acute Qualifiers: Hydronephrosis type: with ureteral calculous obstruction Qualified Code(s) : N13.2 - Hydronephrosis with renal and ureteral calculous obstruction (4) Nephrolithiasis Status: Acute (5) UTI (urinary tract infection) Status: Acute Qualifiers: Urinary tract infection type: acute cystitis Hematuria presence: without hematuria Indwelling urinary catheter type: I Encounter type: E Qualified Code(s): N30.00 - Acute cystitis without hematuria (6) Hydronephrosis Status: Acute Qualifiers: Hydronephrosis type: H Core Measure Documentation - Palliative Care Palliative Care/ Comfort Measures: Not Applicable - Core Measures Any of the following diagnoses?: none Exam - Constitutional Vitals: Temp Pulse Resp BP Pulse Ox 98.2 F 62 18 125/60 100 01/30/17 00:00 01/30/17 00:00 01/30/17 00:00 01/30/17 00:00 01/30/17 00:00 General appearance: Present: no acute distress, well-nourished - EENT Eyes: Present: PERRL ENT: hearing intact, clear oral mucosa - Neck Neck: Present: supple, normal ROM - Respiratory Respiratory effort: normal Respiratory: bilateral: CTA - Cardiovascular Heart Sounds: Present: S1 & S2. Absent: rub, click - Extremities Extremities: pulses symmetrical, No edema Peripheral Pulses: within normal limits - Abdominal General gastrointestinal: Present: soft, non-tender, non-distended, normal bowel sounds Female genitourinary: Present: normal - Integumentary Integumentary: Present: clear, warm, dry - Musculoskeletal Musculoskeletal: gait normal, strength equal bilaterally - Psychiatric Psychiatric: appropriate mood/affect, intact judgment & insight - Neurologic Neurologic: CNII-XII intact, moves all extremities Plan Activity: no restrictions Weight Bearing Status: Full Weight Bearing Diet: regular Follow up with: PRIMARY CARE, [Primary Care Provider] - 3-5 Days Prescriptions: Ciprofloxacin HCl [Ciprofloxacin TAB] 500 mg PO Q12HR #28 tab HYDROcodone/APAP 10-325 [[place] 10-325 mg TAB] 1 each PO Q6H PRN #30 tablet PRN Reason: Pain, Moderate (4-6)
--- NOTE | 2017-01-30 08:08 | Fluoroscopy Report ---
SIX FLUOROSCOPIC IMAGES AT BILATERAL RETROGRADE PYELOGRAM: 01/29/17 CLINICAL: Left distal ureteral calculus. COMPARISON: 01/27/17 CT FINDINGS: Night Time Babysitter images demonstrate no definite calculus.. Subsequent images demonstrate retrograde opacification of the right renal collecting system and ureter which are normal. Partial opacification of the left distal ureter and placement of a left ureteral stent. For more detail, please refer to the operative report.
[2017-01-30 08:46] VITALS: BP 117/75
[2017-01-30] MEDS: PEPCID PO SCH (10:29)
== END 2017-01-30 13:02 | disposition home or self-care (01) | DRG 872 ==
LOC: ED 19:11 → 3A 01-28 01:01
PROVIDERS: ADMIT Internal Medicine; ATTEND Hospitalist
PROC: BT141ZZ Fluoroscopy of Kidneys, Ureters and Bladder using Low Osmolar Contrast (ICD-10-PCS; principal; 2017-01-29)
PROC: 0T778DZ Dilation of Left Ureter with Intraluminal Device, Via Natural or Artificial Opening Endoscopic (ICD-10-PCS; 2017-01-29)
DX: A41.9 Sepsis, unspecified organism (principal); N13.2 Hydronephrosis with renal and ureteral calculous obstruction; N39.0 Urinary tract infection, site not specified; F17.200 Nicotine dependence, unspecified, uncomplicated; N13.9 Obstructive and reflux uropathy, unspecified
CPT/HCPCS: 36415; 74177; 74420; 76770; 80053; 81001; 83690; 84703; 85007; 85025; 87040; 87076; 87086; 87186; 96365; 96375; A4217; C1758; C1769; C2617; J0696; J1100; J1170; J2250; J2270; J2405; J2704; J7030; J7042; Q9967

== ENCOUNTER 2017-03-05 21:05 | Inpatient (IN) | payer OTHER ==
[2017-03-05 21:52] LABS: Basophils % (Auto) 1.2 % (0.0-1.8); Eosinophils % (Auto) 0.7 % (0.0-4.3); Hematocrit 37.3 % (30.3-42.9); Hemoglobin 12.1 gm/dl (10.1-14.3); Mean Corpuscular HGB Conc 33 % (30-34); Mean Corpuscular Hemoglobin 27 pg (28-32); Mean Corpuscular Volume 83 fl (79-97); Platelet Count 281 K/mm3 (140-440); Red Blood Count 4.47 M/mm3 (3.65-5.03); Red Cell Distribution Width 13.9 % (13.2-15.2); White Blood Count 8.6 K/mm3 (4.5-11.0)
[2017-03-05 22:12] LABS: Alanine Aminotransferase 18 units/L (7-56); Albumin 4.3 g/dL (3.9-5); Albumin/Globulin Ratio 1.2 %; Alkaline Phosphatase 69 units/L (35-129); Anion Gap 27 mmol/L; BUN/Creatinine Ratio 13.33; Blood Urea Nitrogen 8 mg/dL (7-17); Carbon Dioxide 16 mmol/L (22-30); Chloride 97.5 mmol/L (98-107); Glucose 92 mg/dL (65-100); Lipase 12 units/L (13-60); Potassium 3.5 mmol/L (3.6-5.0); Sodium 137 mmol/L (137-145)
[2017-03-06] MEDS ORDERED: TYLENOL PO ONE (01:39)
[2017-03-06 01:53] LABS: Bacteria,Urine 2+ /HPF (Negative); Bilirubin,Urine NEG (Negative); Blood,Urine MOD (Negative); Ketones,Urine TR mg/dL (Negative); Leukocyte Esterase,Urine LG (Negative); Mucus,Urine 3+ /HPF; Nitrite,Urine POS (Negative); Urobilinogen,Urine < 2.0 mg/dL (<2.0)
[2017-03-06 01:55] LABS: WBC,Urine > 182.0 /HPF (0.0-6.0)
[2017-03-06] MEDS ORDERED: LEVAQUIN 750MG/150ML 750 MG/150 ML BAG IV ONE (02:00)
--- NOTE | 2017-03-06 02:01 | Emergency Department Report ---
HPI - General Chief Complaint: Abdominal Pain Time Seen by Provider: 03/06/17 01:36 - HPI HPI: This is a 21-year-old Afro-[place] female presents emergency Department, dropped off by her father to be seen, with complaint of left flank and back pain since this morning. She denies any fever, nausea, vomiting, dysuria, vaginal bleeding or discharge. She is not taken anything for symptoms prior to presentation. She has a history of kidney stones in the past as well as a history of pyelonephritis. She does not have a primary care physician. No recent travel or sick contacts at home. ED Past Medical Hx - Past Medical History Hx Hypertension: No Hx Congestive Heart Failure: No Hx Diabetes: No Hx Deep Vein Thrombosis: No Hx GERD: Yes Hx Renal Disease: Yes (hospitalized- pyelonephritis in x 4 days) Hx Sickle Cell Disease: No Hx Seizures: No Hx Kidney Stones: Yes Hx Asthma: No Hx COPD: No Hx HIV: No Additional medical history: Vaginal 7 weeks ago - Surgical History Past Surgical History?: Yes Additional Surgical History: Kidney/Ureters Stent - Social History Smoking Status: Current Every Day Smoker Substance Use Type: None - Medications Home Medications: Home Medications Medication Instructions Recorded Confirmed Last Taken Type Ciprofloxacin HCl [Ciprofloxacin 500 mg PO Q12HR #28 tab 01/30/17 03/06/17 Unknown Rx TAB] HYDROcodone/APAP 10-325 [[place] 1 each PO Q6H PRN #30 tablet 01/30/17 03/06/17 Unknown Rx 10-325 mg TAB] ED Review of Systems ROS: Stated complaint: KIDNEY PAIN/HEADACHE Other details as noted in HPI Comment: All other systems reviewed and negative Constitutional: denies: chills, fever Eyes: denies: eye pain, eye discharge, vision change ENT: denies: ear pain, throat pain Respiratory: denies: cough, shortness of breath, wheezing Cardiovascular: denies: chest pain, palpitations Gastrointestinal: abdominal pain (flank pain). denies: nausea, vomiting Genitourinary: denies: hematuria, discharge Musculoskeletal: back pain. denies: arthralgia Skin: denies: rash, lesions Neurological: denies: headache, weakness, paresthesias Physical Exam - Physical Exam Vital Signs: Vital Signs 03/05/17 03/06/17 03/06/17 21:15 01:13 01:27 Temperature 98.9 F 103.1 F H Pulse Rate 104 H 88 Respiratory 16 16 Rate Blood Pressure 109/74 112/68 [Right] O2 Sat by Pulse 99 100 99 Oximetry Physical Exam: GENERAL: The patient is well-developed well-nourished. HEENT: Normocephalic. Atraumatic. Extraocular motions are intact. Patient has moist mucous membranes. Pupils equal reactive to light bilaterally. NECK: Supple. Trachea is midline. CHEST/LUNGS: Clear to auscultation. There is no respiratory distress noted. HEART/CARDIOVASCULAR: Regular. There is mild tachycardia. There is no gallop rub or murmur. ABDOMEN: Abdomen is soft, nontender. Patient has normal bowel sounds. There is no abdominal distention. SKIN: Skin is hot but dry. NEURO: The patient is awake, alert, and oriented. The patient is cooperative. The patient has no focal neurologic deficits. The patient has normal speech. MUSCULOSKELETAL: There is no tenderness or deformity. There is no limitation range of motion. There is no evidence of acute injury. BACK: No midline thoracic or lumbar tenderness to palpation or deformity. There is some left-sided CVA tenderness to palpation. ED Course Vital Signs 03/05/17 03/06/17 03/06/17 21:15 01:13 01:27 Temperature 98.9 F 103.1 F H Pulse Rate 104 H 88 Respiratory 16 16 Rate Blood Pressure 109/74 112/68 [Right] O2 Sat by Pulse 99 100 99 Oximetry ED Medical Decision Making - Lab Data Result diagrams: 03/05/17 21:36 03/05/17 21:36 - Radiology Data Radiology results: report reviewed CT of the abdomen and pelvis with IV contrast does not show any urinary tract or intestinal obstructions. There is a left ureteral stent in place. - Medical Decision Making 21-year-old female wakes up today with left-sided flank pain with some radiation towards the back. She presents here and has a fever of 103 and some tachycardia. Labs do not show any significant leukocytosis but there is a significant urinary tract infection. She has a history of nephrolithiasis and pyelonephritis. CT of the abdomen and pelvis were done that did not show any intestinal lower urinary tract obstruction. She still has clinical signs or symptoms of pyelonephritis but definitely has a urinary tract infection and for fills the Sirs criteria which makes her sepsis. She began having some hypotension and was given IV fluid resuscitation and has started to respond. She was put on a dose of Levaquin and blood and urine cultures were sent. She will be admitted to the hospital for further evaluation and treatment and has been accepted for admission by the hospitalist, Dr. Sarabia. - Differential Diagnosis UTI, sepsis, pyelonephritis, nephrolithiasis Critical Care Time: No Critical care attestation.: If time is entered above; I have spent that time in minutes in the direct care of this critically ill patient, excluding procedure time. ED Disposition Clinical Impression: UTI (urinary tract infection) Qualifiers: Urinary tract infection type: acute cystitis Hematuria presence: without hematuria Qualified Code(s): N30.00 - Acute cystitis without hematuria Sepsis Qualifiers: Sepsis type: sepsis due to unspecified organism Qualified Code(s): A41.9 - Sepsis, unspecified organism Hypotension Qualifiers: Hypotension type: unspecified hypotension type Qualified Code(s): I95.9 - Hypotension, unspecified Fever Qualifiers: Fever type: unspecified Qualified Code(s): R50.9 - Fever, unspecified Disposition: -09 OP ADMIT IP TO THIS HOSP Is pt being admited?: Yes Condition: Stable Instructions: Abdominal Pain (ED) Referrals: PRIMARY CARE, [Primary Care Provider] - 3-5 Days Time of Disposition: 04:50
[2017-03-06] MEDS ORDERED: NACL 0.9% 1000 ML 1,000 ML IV ONE (03:40)
--- NOTE | 2017-03-06 03:53 | Cat Scan Report ---
FINAL REPORT PROCEDURE: CT ABDOMEN PELVIS W CON TECHNIQUE: Computerized axial tomography of the abdomen and pelvis was performed after the IV injection of iodinated nonionic contrast. HISTORY: L flank pain, UTI, fever COMPARISON: 01/27/2017 FINDINGS: Visualized lower thorax: No significant abnormality. Liver: Normal size and attenuation. Spleen: Normal size and attenuation. Gallbladder and biliary system: Normal. Pancreas: Normal. Adrenals: Normal. Kidneys: There is a stent identified in the left ureter.. GI tract: The stomach is normal. The small bowel has a normal caliber. No obstruction, ileus or enteritis. The cecum, appendix region and colon are normal.. Lymph nodes and mesentery: Normal. Vasculature: Normal. Bladder: Normal. Reproductive organs: The uterus is normal. There are few small follicular cysts on each ovary.. Peritoneum: No free fluid. Musculoskeletal structures: No significant abnormality. Other: None. IMPRESSION: There is no evidence of intestinal or urinary tract obstruction. A left ureteral stent is identified
[2017-03-06] MEDS ORDERED: DULCOLAX PR PRN (05:53)
[2017-03-06] MEDS ORDERED: MILK OF MAGNESIA PO PRN (05:53)
[2017-03-06] MEDS ORDERED: ZOFRAN IV PRN (05:53)
[2017-03-06] MEDS ORDERED: TYLENOL PO PRN (05:53)
--- NOTE | 2017-03-06 05:58 | History and Physical Report ---
History of Present Illness Date of examination: 03/06/17 History of present illness: 21 woman with no medical history comes emergency room with complaints of left flank pain described as sharp, constant, intensity,6/10, no radiation, cannot identify exacerbating or relieving factors. She admits to urinary frequency and fever and chills Patient denies chest pain, palpitation, shortness of breath, cough, abdominal pain, hematochezia, dysuria, frequency, focal weakness, dysarthria, polydipsia polyuria, hot or cold intolerance, easy bruisability, or rash or bleeding from mucosal membrane, rhinorrhea, epistaxis, earache, tinnitus, blurry vision, eye discharge, anxiety, depression. Other review of systems negative PAST SURGICAL HISTORY: None SOCIAL HISTORY: Smoke half Pack a day, no alcohol or drugs FAMILY HISTORY: Hypertension Medications and Allergies Allergies Allergy/AdvReac Type Severity Reaction Status Date / Time No Known Allergies Allergy Verified 04/13/16 00:06 Home Medications Medication Instructions Recorded Confirmed Last Taken Type Ciprofloxacin HCl [Ciprofloxacin 500 mg PO Q12HR #28 tab 01/30/17 03/06/17 Unknown Rx TAB] HYDROcodone/APAP 10-325 [[place] 1 each PO Q6H PRN #30 tablet 01/30/17 03/06/17 Unknown Rx 10-325 mg TAB] Exam - Physical Exam Narrative exam: Gen. appearance: Patient lying in bed, no apparent distress HEENT: Normocephalic, atraumatic, pupils equally round and reactive to light, extraocular movement intact, and no sclericterus,. No JVD or thyromegaly or nodule,neck supple, no carotid bruit ,mucous membranes moist, no exudate or erythema Heart: S1, S2, regular rate and rhythm Lungs: Clear to auscultation bilaterally, breathing comfortable Abdomen: Positive bowel sounds, nontender, nondistended, no organomegaly Extremity: Left CVA tenderness, No edema, cyanosis, clubbing Skin: No rash, nodules, warm, dry Neuro: Oriented 3, cranial nerves II-12 intact, speech is fluent, motor and sensory intact - Constitutional Vitals: Temp Pulse Resp BP Pulse Ox 99 F 89 13 95/55 98 03/06/17 04:00 03/06/17 03:38 03/06/17 03:38 03/06/17 03:38 03/06/17 03:38 Results - Labs CBC & Chem 7: 03/05/17 21:36 03/05/17 21:36 Labs: Abnormal lab results 03/05/17 03/05/17 03/05/17 Range/Units 01:27 21:36 21:36 MCH 27 L (28-32) pg Seg Neutrophils % 76.2 H (40.0-70.0) % Potassium 3.5 L (3.6-5.0) mmol/L Chloride 97.5 L (98-107) mmol/L Carbon Dioxide 16 L (22-30) mmol/L Creatinine 0.6 L (0.7-1.2) mg/dL Lipase 12 L (13-60) units/L Urine WBC (Auto) > 182.0 H (0.0-6.0) /HPF - Imaging and Cardiology CT scan - abdomen: report reviewed CT scan - pelvis: report reviewed Assessment and Plan Sepsis UTI Admits medicine Start IV fluid, IV Rocephin, follow cultures, start DVT prophylaxis
[2017-03-06] MEDS: MORPHINE IV PRN ×2 (07:00→14:15)
--- NOTE | 2017-03-06 08:32 | Admit Criteria Form ---
Admission Criteria Documentation: SEPSIS and OTHER FEBRILE ILLNESS, W/O FOCAL INFECTION Clinical Indications for Admission to Inpatient Care ( Place 'X' for any and all applicable criteria): Admission is indicated for ANY ONE of the following (1)(2)(3)(4): [ ] I. Bacteremia [ ]II. Suspected or identified specific infection requiring hospitalization (eg, meningitis, endocarditis) [ ]III. Hemodynamic instability [ ]IV. Altered mental status [ ]V. Failure or unavailability of outpatient antimicrobial treatment [ ]. Hypoxemia [ ]VII. Seizures [ ]VIII. High-risk febrile neutropenia [ ]IX. Need for parenteral antibiotic in patient who is likely to abuse vascular access device (eg, injection drug user) [A](7) [ ]X. Temperature greater than 104.9 degrees F (40.5 degrees C) (oral) [X]XI. Inpatient admission required rather than observation care because of ANY ONE of the following: [X]1) Specific infection identified that is too severe for outpatient treatment or observation care trial [ ]2) Metabolic disorder (eg, hypoglycemia, hyperglycemia, metabolic acidosis) that is severe or persistent [ ]3) Temperature greater than 103.1 degrees F (39.5 degrees C) ( oral) that is not responsive to observation care treatment [ ]4) IV fluid to replace significant ongoing (eg, for over 24 hours) losses (> 3 L/m2 per day) [ ]5) Supplemental oxygen or respiratory treatments for over 24 hours that is performable only in acute inpatient setting [ ]6) Parenteral nutrition regimen need that must be implemented on inpatient basis [ ]7) Strict or protective (eg, laminar flow) isolation [ ]8) Other condition, treatment or monitoring requiring inpatient admission Extended stay beyond goal length of stay may be needed for(1)(3) [ ]a) Sepsis or septic shock(22) [ ]b) Positive blood cultures [ ]c) Insufficient oral intake [ ]d) High-risk febrile neutropenia(29)(30) [ ]e) Continued fever and clinical instability [ ]f) Clinically active comorbid illness (e.g,heart failure, renal failure , diabetes) The original [facility] content created by Pat Garcia has been revised. The portions of the content which have been revised are identified through the use of italic text or in bold, and Pat Garcia has neither reviewed nor approved the modified material. All other unmodified content is copyright [facility]. Please see references footnoted in the original [facility] edition 2016 Admission Criteria Met: Yes
[2017-03-06] MEDS: LOVENOX SUB-Q SCH (09:14)
[2017-03-06] MEDS: ROCEPHIN/NS 2 GM/100 ML 2 GM/100 ML BAG IV SCH (10:20)
[2017-03-06] MEDS: NACL 0.9% 1000 ML 1,000 ML IV SCH ×2 (14:15→21:41)
[2017-03-06] MEDS: NORCO 10/325 PO PRN (20:33)
--- NOTE | 2017-03-06 21:53 | Discharge Summary ---
Providers - Providers Date of Admission: 03/06/17 05:53 Attending physician: KATERINA OLMEDO MD Primary care physician: MARCELLO BROWN MD Hospitalization Condition: Stable Hospital course: 21 year old woman with a past medical history of obstructive uropathy status post left ureteral stent who presents with fever and left flank pain. She was found to have sepsis secondary to UTI, CT of her abdomen and pelvis did not reveal any urinary obstruction. She was placed on empiric antibiotics, she defervesced, and clinically improved. She's being discharged on oral antibiotic for treatment of complicated UTI. she was counseled on Tobacco cessation, she verbalized understanding and she was given nicotine patches aid with her quitting tobacco abuse. Low serum K was noted and repleted after which it normalized. She is advised to fup with Her Urologist for removal of ureteral stent discharge diagnosis sepsis UTI tobacco abuse hypokalemia Disposition: TO HOME OR SELFCARE Time spent for discharge: 32 minutes Core Measure Documentation - Palliative Care Palliative Care/ Comfort Measures: Not Applicable - Core Measures Any of the following diagnoses?: none Exam - Constitutional Vitals: Temp Pulse Resp BP Pulse Ox 100.3 F H 83 16 97/57 100 03/06/17 17:58 03/06/17 17:58 03/06/17 17:58 03/06/17 17:58 03/06/17 14:35 General appearance: Present: no acute distress, well-nourished - EENT Eyes: Present: PERRL ENT: hearing intact, clear oral mucosa - Neck Neck: Present: supple, normal ROM - Respiratory Respiratory effort: normal Respiratory: bilateral: CTA - Cardiovascular Heart Sounds: Present: S1 & S2. Absent: rub, click - Extremities Extremities: pulses symmetrical, No edema Peripheral Pulses: within normal limits - Abdominal General gastrointestinal: Present: soft, non-tender, non-distended, normal bowel sounds Female genitourinary: Present: normal - Integumentary Integumentary: Present: clear, warm, dry - Musculoskeletal Musculoskeletal: gait normal, strength equal bilaterally - Psychiatric Psychiatric: appropriate mood/affect, intact judgment & insight - Neurologic Neurologic: CNII-XII intact, moves all extremities Plan Follow up with: PRIMARY CARE, [Primary Care Provider] - 3-5 Days Prescriptions: Amoxicillin/K Clav Tab [Augmentin 500 MG TAB] 1 each PO Q12HR #14 tablet HYDROcodone/APAP 10-325 [[place] 10-325 mg TAB] 1 each PO Q6H PRN #14 tablet PRN Reason: Pain, Moderate (4-6) Nicotine [Habitrol] 14 mg TD DAILY #14 patch
[2017-03-07] MEDS: MORPHINE IV PRN (02:41)
[2017-03-07 05:17] LABS: Basophils % (Auto) 0.6 % (0.0-1.8); Hematocrit 29.4 % (30.3-42.9); Hemoglobin 9.7 gm/dl (10.1-14.3); Mean Corpuscular HGB Conc 33 % (30-34); Mean Corpuscular Hemoglobin 28 pg (28-32); Mean Corpuscular Volume 84 fl (79-97); Platelet Count 208 K/mm3 (140-440); Red Blood Count 3.52 M/mm3 (3.65-5.03); Red Cell Distribution Width 13.9 % (13.2-15.2); White Blood Count 7.2 K/mm3 (4.5-11.0)
[2017-03-07 05:31] LABS: Anion Gap 15 mmol/L; Blood Urea Nitrogen 4 mg/dL (7-17); Calcium 8.1 mg/dL (8.4-10.2); Carbon Dioxide 21 mmol/L (22-30); Chloride 105.8 mmol/L (98-107); Glucose 81 mg/dL (65-100); Sodium 138 mmol/L (137-145)
[2017-03-07] MEDS: NACL 0.9% 1000 ML 1,000 ML IV SCH (05:40)
[2017-03-07] MEDS: LOVENOX SUB-Q SCH (09:19)
[2017-03-07] MEDS: ROCEPHIN/NS 2 GM/100 ML 2 GM/100 ML BAG IV SCH (11:31)
[2017-03-07] MEDS: NORCO 10/325 PO PRN (15:50)
[2017-03-07 17:05] VITALS: BP 101/56
== END 2017-03-07 17:10 | disposition home or self-care (01) | DRG 872 ==
LOC: ED 21:05 → 3A 03-06 05:53
PROVIDERS: ADMIT Internal Medicine; ATTEND Internal Medicine
DX: A41.9 Sepsis, unspecified organism (principal); N39.0 Urinary tract infection, site not specified; E87.6 Hypokalemia; F17.210 Nicotine dependence, cigarettes, uncomplicated; K21.9 Gastro-esophageal reflux disease without esophagitis; Z96.0 Presence of urogenital implants; Z82.49 Family history of ischemic heart disease and other diseases of the circulatory system; Z71.6 Tobacco abuse counseling
CPT/HCPCS: 36415; 74177; 80048; 80053; 81001; 83690; 84703; 85025; 87040; 87086; 96361; 96365; 99406; J0696; J1650; J1956; J2270; J2405; J7030; Q9967

== ENCOUNTER 2017-04-11 19:36 | Emergency (ER) | payer MEDICAID ==
[2017-04-11 20:30] LABS: Basophils % (Auto) 0.7 % (0.0-1.8); Eosinophils % (Auto) 2.5 % (0.0-4.3); Hematocrit 34.4 % (30.3-42.9); Hemoglobin 11.3 gm/dl (10.1-14.3); Mean Corpuscular HGB Conc 33 % (30-34); Mean Corpuscular Hemoglobin 27 pg (28-32); Mean Corpuscular Volume 82 fl (79-97); Platelet Count 285 K/mm3 (140-440); Red Blood Count 4.18 M/mm3 (3.65-5.03); Red Cell Distribution Width 14.7 % (13.2-15.2); White Blood Count 10.5 K/mm3 (4.5-11.0)
[2017-04-11 20:40] LABS: Bacteria,Urine 2+ /HPF (Negative); Bilirubin,Urine NEG (Negative); Blood,Urine MOD (Negative); Ketones,Urine NEG (Negative); Leukocyte Esterase,Urine LG (Negative); Nitrite,Urine NEG (Negative); Urobilinogen,Urine < 2.0 mg/dL (<2.0)
[2017-04-11 20:45] LABS: WBC,Urine > 182.0 /HPF (0.0-6.0)
[2017-04-11 20:47] LABS: Alanine Aminotransferase 14 units/L (7-56); Albumin/Globulin Ratio 1.3 %; Alkaline Phosphatase 60 units/L (35-129); Anion Gap 18 mmol/L; BUN/Creatinine Ratio 21.66; Blood Urea Nitrogen 13 mg/dL (7-17); Calcium 8.8 mg/dL (8.4-10.2); Carbon Dioxide 24 mmol/L (22-30); Chloride 102.4 mmol/L (98-107); Glucose 93 mg/dL (65-100); Lipase 18 units/L (13-60); Potassium 4.2 mmol/L (3.6-5.0); Sodium 140 mmol/L (137-145); Total Protein 7.2 g/dL (6.3-8.2)
[2017-04-12] MEDS ORDERED: NORCO 10/325 PO ONE (00:40)
[2017-04-12] MEDS ORDERED: NORCO 10/325 ONE (00:40)
--- NOTE | 2017-04-12 01:21 | Cat Scan Report ---
FINAL REPORT PROCEDURE: CT ABDOMEN PELVIS WO CON TECHNIQUE: Computerized axial tomography of the abdomen and pelvis was performed without intravenous contrast. This study is performed without intravascular contrast material and its sensitivity for abdominal and pelvic pathology, including neoplasms, inflammation, abscess, free fluid, thrombosis, arterial dissection and infarction, is reduced compared with a contrast enhanced study. HISTORY: Pain, Blood in Urine, Hx Stent and Kidney Stones COMPARISON: 03/06/2017 FINDINGS: Visualized lower thorax: No significant abnormality. Liver: Normal size and attenuation. Spleen: Normal size and attenuation. Gallbladder and biliary system: Normal. Pancreas: Normal. Adrenals: Normal. Kidneys: Both kidneys have normal size. A left ureteral stent is identified and is in appropriate position. No hydronephrosis.. GI tract: The stomach is normal. The small bowel has a normal caliber. No obstruction, ileus or enteritis. The cecum, appendix region and colon are normal. Moderate fecal debris throughout colon is noted. Constipation is possible.. Lymph nodes and mesentery: Normal. Vasculature: Normal. Bladder: Normal. Reproductive organs: Normal. Peritoneum: No free fluid. Musculoskeletal structures: No significant abnormality. Other: None. IMPRESSION: There is no evidence of intestinal or urinary tract obstruction. No ileus or enteritis. Moderate fecal debris throughout the colon may represent constipation. Left ureteral stent is identified and is unchanged in positioning since prior study..
[2017-04-12] MEDS ORDERED: ROCEPHIN/NS 1 GM/50 ML 1 GM/50 ML BAG IV ONE (03:28)
[2017-04-12] MEDS ORDERED: TORADOL IV ONE (03:28)
[2017-04-12] MEDS ORDERED: NACL 0.9% 1000 ML 1,000 ML IV ONE (03:28)
[2017-04-12] MEDS ORDERED: MORPHINE IV ONE (03:28)
[2017-04-12] MEDS ORDERED: ZOFRAN IV ONE (03:28)
[2017-04-12 03:52] VITALS: BP 95/47
--- NOTE | 2017-04-12 04:43 | Emergency Department Report ---
ED Female HPI - General Chief complaint: Abdominal Pain Stated complaint: KIDNEY PAIN Time Seen by Provider: 04/12/17 03:21 Source: patient Mode of arrival: Ambulatory Limitations: No Limitations - History of Present Illness Initial comments: 21-year-old female with a past medical history of obstructive uropathy with stent placement here in January presents to the hospital complains of left flank pain, hematuria, and increased urinary frequency 1 week. Patient developed nausea vomiting with decreased by mouth tolerance today. Intermittent fever reported. Pain described as aching, intermittent, worse with palpation and movement. Pain is moderate to severe in intensity. No alleviating factors. Similar symptoms in the past with obstructive uropathy and UTI. Since stent placement and stone extraction in January 2017 patient had an admission in February for UTI/sepsis 1 day. - Related Data Previous Rx's Medication Instructions Recorded Last Taken Type Amoxicillin/K Clav Tab [Augmentin 1 each PO Q12HR #14 tablet 03/06/17 Unknown Rx 500 MG TAB] Nicotine [Habitrol] 14 mg TD DAILY #14 patch 03/07/17 Unknown Rx Ibuprofen [Motrin] 600 mg PO Q8H PRN #30 tablet 04/12/17 Unknown Rx Ondansetron [Zofran Odt] 4 mg PO Q8HR PRN #20 tab.rapdis 04/12/17 Unknown Rx Sulfamethoxazole/Trimethoprim 1 each PO BID #28 tablet 04/12/17 Unknown Rx [Bactrim DS TAB] oxyCODONE /ACETAMINOPHEN [Percocet 1 tab PO Q6HR PRN #20 tablet 04/12/17 Unknown Rx 5/325] Allergies Allergy/AdvReac Type Severity Reaction Status Date / Time No Known Allergies Allergy Verified 04/13/16 00:06 ED Review of Systems ROS: Stated complaint: KIDNEY PAIN Other details as noted in HPI Comment: All other systems reviewed and negative Other: Constitutional: Intermittent fever Eyes: No eye pain visual changes ENT: No ear pain or throat pain Neck: Denies pain Respiratory: Denies cough wheezing shortness of breath Cardiovascular: Denies chest pain, palpitations, syncope GI: as per hpi : Denies dysuria Musculoskeletal: as per hpi Skin: Denies rash, lesions, erythema Neurologic: Denies headache, numbness, weakness Psychiatric: Denies suicidal ideation, hallucinations ED Past Medical Hx - Past Medical History Previous Medical History?: Yes Hx Hypertension: No Hx Congestive Heart Failure: No Hx Diabetes: No Hx Deep Vein Thrombosis: No Hx GERD: Yes Hx Renal Disease: Yes (hospitalized- pyelonephritis in x 4 days) Hx Sickle Cell Disease: No Hx Seizures: No Hx Kidney Stones: Yes Hx Asthma: No Hx COPD: No Hx HIV: No Additional medical history: Vaginal 7 weeks ago - Surgical History Past Surgical History?: Yes Additional Surgical History: Kidney/Ureters Stent - Social History Smoking Status: Never Smoker Substance Use Type: None - Medications Home Medications: Home Medications Medication Instructions Recorded Confirmed Last Taken Type Amoxicillin/K Clav Tab [Augmentin 1 each PO Q12HR #14 tablet 03/06/17 Unknown Rx 500 MG TAB] Nicotine [Habitrol] 14 mg TD DAILY #14 patch 03/07/17 Unknown Rx Ibuprofen [Motrin] 600 mg PO Q8H PRN #30 tablet 04/12/17 Unknown Rx Ondansetron [Zofran Odt] 4 mg PO Q8HR PRN #20 tab.rapdis 04/12/17 Unknown Rx Sulfamethoxazole/Trimethoprim 1 each PO BID #28 tablet 04/12/17 Unknown Rx [Bactrim DS TAB] oxyCODONE /ACETAMINOPHEN [Percocet 1 tab PO Q6HR PRN #20 tablet 04/12/17 Unknown Rx 5/325] ED Physical Exam - General Limitations: No Limitations - Other Other exam information: General: No limitations, patient is alert in no acute distress Head exam: Atraumatic, normocephalic Eyes exam: Normal appearance ENT: Moist mucous membrane Neck exam: Normal inspection, full range of motion, no meningismus nontender Respiratory exam: Clear to auscultation bilateral, no wheezes, rales, crackles Cardiovascular: Mild tachycardia Abdomen: Soft, nondistended, left-sided abdominal tenderness, with normal bowel sounds, no rebound, or guarding Extremity: Full range of motion normal inspection no deformity Back: Normal Inspection, full range of motion, left flank tenderness Neurologic: Alert, oriented x3, cranial nerves intact, no motor or sensory deficit Psychiatric: normal affect, normal mood Skin: Warm, dry, intact ED Course Vital Signs 04/11/17 04/12/17 04/12/17 19:47 00:27 01:59 Temperature 98.9 F Pulse Rate 95 H 82 78 Respiratory 16 16 18 Rate Blood Pressure 107/71 Blood Pressure 96/59 106/61 [Right] O2 Sat by Pulse 98 100 100 Oximetry 04/12/17 03:51 Temperature Pulse Rate 92 H Respiratory 18 Rate Blood Pressure Blood Pressure 95/47 [Right] O2 Sat by Pulse 99 Oximetry - Reevaluation(s) Reevaluation #1: 04/12/17 04:49 Treated with Rocephin, Zofran, morphine, Toradol, and normal saline 04/12/17 05:09 IV Dilaudid ordered for persistent pain. Patient also received hydrocodone prior to my evaluation ED Medical Decision Making - Lab Data Result diagrams: 04/11/17 19:55 04/11/17 19:55 Lab Results 04/11/17 04/11/17 04/11/17 Range/Units 19:55 19:55 19:55 WBC 10.5 (4.5-11.0) K/mm3 RBC 4.18 (3.65-5.03) M/mm3 Hgb 11.3 (10.1-14.3) gm/dl Hct 34.4 (30.3-42.9) % MCV 82 (79-97) fl MCH 27 L (28-32) pg MCHC 33 (30-34) % RDW 14.7 (13.2-15.2) % Plt Count 285 (140-440) K/mm3 Lymph % (Auto) 22.5 (13.4-35.0) % [place] % (Auto) 6.6 (0.0-7.3) % Eos % (Auto) 2.5 (0.0-4.3) % Baso % (Auto) 0.7 (0.0-1.8) % Lymph # 2.4 (1.2-5.4) K/mm3 [place] # 0.7 (0.0-0.8) K/mm3 Eos # 0.3 (0.0-0.4) K/mm3 Baso # 0.1 (0.0-0.1) K/mm3 Seg Neutrophils % 67.7 (40.0-70.0) % Seg Neutrophils # 7.1 (1.8-7.7) K/mm3 Sodium 140 (137-145) mmol/L Potassium 4.2 (3.6-5.0) mmol/L Chloride 102.4 (98-107) mmol/L Carbon Dioxide 24 (22-30) mmol/L Anion Gap 18 mmol/L BUN 13 (7-17) mg/dL Creatinine 0.6 L (0.7-1.2) mg/dL Estimated GFR > 60 ml/min BUN/Creatinine Ratio 21.66 % Glucose 93 (65-100) mg/dL Calcium 8.8 (8.4-10.2) mg/dL Total Bilirubin 0.80 (0.1-1.2) mg/dL AST 15 (5-40) units/L ALT 14 (7-56) units/L Alkaline Phosphatase 60 (35-129) units/L Total Protein 7.2 (6.3-8.2) g/dL Albumin 4.0 (3.9-5) g/dL Albumin/Globulin Ratio 1.3 % Lipase 18 (13-60) units/L HCG, Qual Negative (Negative) Urine Color (Yellow) Urine Turbidity (Clear) Urine pH (5.0-7.0) Ur Specific [place] (1.003-1.030) Urine Protein (Negative) mg/dL Urine Glucose (UA) (Negative) mg/dL Urine Ketones (Negative) mg/dL Urine Blood (Negative) Urine Nitrite (Negative) Urine Bilirubin (Negative) Urine Urobilinogen (<2.0) mg/dL Ur Leukocyte Esterase (Negative) Urine WBC (Auto) (0.0-6.0) /HPF Urine RBC (Auto) (0.0-6.0) /HPF Urine Bacteria (Auto) (Negative) /HPF Urine WBC Clumps /HPF Calcium Oxalate Crystal 04/11/17 Range/Units 20:13 WBC (4.5-11.0) K/mm3 RBC (3.65-5.03) M/mm3 Hgb (10.1-14.3) gm/dl Hct (30.3-42.9) % MCV (79-97) fl MCH (28-32) pg MCHC (30-34) % RDW (13.2-15.2) % Plt Count (140-440) K/mm3 Lymph % (Auto) (13.4-35.0) % [place] % (Auto) (0.0-7.3) % Eos % (Auto) (0.0-4.3) % Baso % (Auto) (0.0-1.8) % Lymph # (1.2-5.4) K/mm3 [place] # (0.0-0.8) K/mm3 Eos # (0.0-0.4) K/mm3 Baso # (0.0-0.1) K/mm3 Seg Neutrophils % (40.0-70.0) % Seg Neutrophils # (1.8-7.7) K/mm3 Sodium (137-145) mmol/L Potassium (3.6-5.0) mmol/L Chloride (98-107) mmol/L Carbon Dioxide (22-30) mmol/L Anion Gap mmol/L BUN (7-17) mg/dL Creatinine (0.7-1.2) mg/dL Estimated GFR ml/min BUN/Creatinine Ratio % Glucose (65-100) mg/dL Calcium (8.4-10.2) mg/dL Total Bilirubin (0.1-1.2) mg/dL AST (5-40) units/L ALT (7-56) units/L Alkaline Phosphatase (35-129) units/L Total Protein (6.3-8.2) g/dL Albumin (3.9-5) g/dL Albumin/Globulin Ratio % Lipase (13-60) units/L HCG, Qual (Negative) Urine Color Yellow (Yellow) Urine Turbidity Turbid (Clear) Urine pH 8.0 H (5.0-7.0) Ur Specific [place] 1.016 (1.003-1.030) Urine Protein 100 mg/dl (Negative) mg/dL Urine Glucose (UA) Neg (Negative) mg/dL Urine Ketones Neg (Negative) mg/dL Urine Blood Mod (Negative) Urine Nitrite Neg (Negative) Urine Bilirubin Neg (Negative) Urine Urobilinogen < 2.0 (<2.0) mg/dL Ur Leukocyte Esterase Lg (Negative) Urine WBC (Auto) > 182.0 H (0.0-6.0) /HPF Urine RBC (Auto) 168.0 (0.0-6.0) /HPF Urine Bacteria (Auto) 2+ (Negative) /HPF Urine WBC Clumps 3+ /HPF Calcium Oxalate Crystal 3+ - Radiology Data Radiology results: report reviewed CT abdomen and pelvis noncontrast: Left ureteral stent in unchanged position. Moderate fecal debris throughout the colon may represent constipation. No intestinal or urinary tract obstruction - Medical Decision Making Patient received Rocephin IV in the ED. Previous microbiology on urine review. During admission in January for stent placement patient's urine grew staph that was not very sensitive to penicillin but sensitive to flouroquinlones and Bactrim. Patient will receive by mouth Bactrim here in the ED and will be discharged on Bactrim. Current urine culture sent and pending. She has not been treated with Bactrim during recent hospital visits. Patient states she plans to make a call to urology tomorrow. - Differential Diagnosis UTI, renal colic, pyelonephritis Critical Care Time: No Critical care attestation.: If time is entered above; I have spent that time in minutes in the direct care of this critically ill patient, excluding procedure time. ED Disposition Clinical Impression: Retained ureteral stent, Pyelonephritis Disposition: TO HOME OR SELFCARE Is pt being admited?: No Does the pt Need Aspirin: No Condition: Stable Instructions: Acute Pyelonephritis (ED) Additional Instructions: Take medication as prescribed. Follow with your primary care doctor or the doctor provided if you do not have one. It is very important that you follow up with urology as outpatient for removal of your stent Prescriptions: Ibuprofen [Motrin] 600 mg PO Q8H PRN #30 tablet PRN Reason: Pain Ondansetron [Zofran Odt] 4 mg PO Q8HR PRN #20 tab.rapdis PRN Reason: Nausea And Vomiting oxyCODONE /ACETAMINOPHEN [Percocet 5/325] 1 tab PO Q6HR PRN #20 tablet PRN Reason: Pain Sulfamethoxazole/Trimethoprim [Bactrim DS TAB] 1 each PO BID #28 tablet Referrals: JUDY SHARP MD [Staff Physician] - 3-5 Days (Urologist) YAMILETH RUSSO MD [Staff Physician] - 3-5 Days (Primary care doctor ) PRIMARY MD KEVIN [Primary Care Provider] - 3-5 Days Time of Disposition: 04:57
[2017-04-12] MEDS ORDERED: BACTRIM DS PO ONE (04:53)
[2017-04-12] MEDS ORDERED: DILAUDID IV ONE (05:08)
== END 2017-04-12 06:35 | disposition home or self-care (01) ==
LOC: ED 19:36
DX: N12 Tubulo-interstitial nephritis, not specified as acute or chronic (principal); T83.192A Other mechanical complication of indwelling ureteral stent, initial encounter; K21.9 Gastro-esophageal reflux disease without esophagitis; Z87.442 Personal history of urinary calculi
CPT/HCPCS: 36415; 74176; 80053; 81001; 83690; 84703; 85025; 87086; 96365; 96375; 99284; J0696; J1170; J1885; J2270; J2405; J7030

== ENCOUNTER 2017-04-28 01:29 | Emergency (ER) | payer MEDICAID ==
[2017-04-28 03:00] LABS: Basophils % (Auto) 0.5 % (0.0-1.8); Eosinophils % (Auto) 0.7 % (0.0-4.3); Hematocrit 36.7 % (30.3-42.9); Mean Corpuscular HGB Conc 33 % (30-34); Mean Corpuscular Hemoglobin 27 pg (28-32); Mean Corpuscular Volume 81 fl (79-97); Platelet Count 268 K/mm3 (140-440); Red Blood Count 4.54 M/mm3 (3.65-5.03); Red Cell Distribution Width 15.1 % (13.2-15.2); White Blood Count 11.1 K/mm3 (4.5-11.0)
[2017-04-28 03:31] LABS: Alanine Aminotransferase 19 units/L (7-56); Albumin 4.4 g/dL (3.9-5); Albumin/Globulin Ratio 1.4 %; Alkaline Phosphatase 73 units/L (35-129); Anion Gap 21 mmol/L; BUN/Creatinine Ratio 21.66; Blood Urea Nitrogen 13 mg/dL (7-17); Calcium 8.9 mg/dL (8.4-10.2); Carbon Dioxide 22 mmol/L (22-30); Chloride 98.9 mmol/L (98-107); Glucose 119 mg/dL (65-100); Lipase 19 units/L (13-60); Potassium 3.9 mmol/L (3.6-5.0); Sodium 138 mmol/L (137-145); Total Protein 7.6 g/dL (6.3-8.2)
[2017-04-28 06:07] LABS: Bacteria,Urine 3+ /HPF (Negative); Mucus,Urine 3+ /HPF
[2017-04-28 06:11] LABS: RBC,Urine > 182.0 /HPF (0.0-6.0); WBC,Urine > 182.0 /HPF (0.0-6.0)
[2017-04-28 06:19] LABS: Bilirubin,Urine NEG (Negative); Blood,Urine LG (Negative); Ketones,Urine NEG (Negative); Leukocyte Esterase,Urine MOD (Negative); Nitrite,Urine POS (Negative); Urobilinogen,Urine < 2.0 mg/dL (<2.0)
[2017-04-28 06:24] LABS: Protein,Urine >500 mg/dL (Negative)
[2017-04-28] MEDS ORDERED: XYLOCAINE 1% MPF 5 mL INFILTRATI ONE (08:13)
[2017-04-28] MEDS ORDERED: ROCEPHIN IM ONE (08:13)
--- NOTE | 2017-04-28 08:18 | Emergency Department Report ---
ED Female HPI - General Chief complaint: Abdominal Pain Stated complaint: CP/LOWER BACK/ABD PAIN Time Seen by Provider: 04/28/17 08:07 Source: patient Mode of arrival: Ambulatory Limitations: No Limitations - History of Present Illness Initial comments: 21 years old female coming with lower abdominal pain and back pain and lesions on her vulva. Stated symptoms been going on for 2-3 days. Patient is also complaining of dysuria and frequency of urination. Denied any fever no nausea no vomiting. MD Complaint: dysuria, possible STD -: Gradual Location: suprapubic Severity scale (0 -10): 4 Worsens with: urination - Related Data Previous Rx's Medication Instructions Recorded Last Taken Type Amoxicillin/K Clav Tab [Augmentin 1 each PO Q12HR #14 tablet 03/06/17 Unknown Rx 500 MG TAB] Nicotine [Habitrol] 14 mg TD DAILY #14 patch 03/07/17 Unknown Rx Ibuprofen [Motrin] 600 mg PO Q8H PRN #30 tablet 04/12/17 Unknown Rx Ondansetron [Zofran Odt] 4 mg PO Q8HR PRN #20 tab.rapdis 04/12/17 Unknown Rx Sulfamethoxazole/Trimethoprim 1 each PO BID #28 tablet 04/12/17 Unknown Rx [Bactrim DS TAB] oxyCODONE /ACETAMINOPHEN [Percocet 1 tab PO Q6HR PRN #20 tablet 04/12/17 Unknown Rx 5/325] Ciprofloxacin HCl [Ciprofloxacin 500 mg PO Q12H #14 tab 04/28/17 Unknown Rx TAB] valACYclovir [Valtrex] 500 mg PO TID #21 tab 04/28/17 Unknown Rx Allergies Allergy/AdvReac Type Severity Reaction Status Date / Time No Known Allergies Allergy Verified 04/13/16 00:06 ED Review of Systems ROS: Stated complaint: CP/LOWER BACK/ABD PAIN Other details as noted in HPI Comment: All other systems reviewed and negative Constitutional: denies: chills, fever Respiratory: denies: cough, shortness of breath Cardiovascular: denies: chest pain, palpitations Gastrointestinal: abdominal pain. denies: nausea, vomiting, diarrhea, constipation, hematemesis, melena, hematochezia Genitourinary: urgency, dysuria, other (lesions on the vulva). denies: hematuria ED Past Medical Hx - Past Medical History Previous Medical History?: Yes Hx Hypertension: No Hx Congestive Heart Failure: No Hx Diabetes: No Hx Deep Vein Thrombosis: No Hx GERD: Yes Hx Renal Disease: Yes (hospitalized- pyelonephritis in x 4 days) Hx Sickle Cell Disease: No Hx Seizures: No Hx Kidney Stones: Yes Hx Asthma: No Hx COPD: No Hx HIV: No Additional medical history: Vaginal 7 weeks ago - Surgical History Past Surgical History?: Yes Additional Surgical History: Kidney/Ureters Stent - Social History Smoking Status: Never Smoker Substance Use Type: None - Medications Home Medications: Home Medications Medication Instructions Recorded Confirmed Last Taken Type Amoxicillin/K Clav Tab [Augmentin 1 each PO Q12HR #14 tablet 03/06/17 Unknown Rx 500 MG TAB] Nicotine [Habitrol] 14 mg TD DAILY #14 patch 03/07/17 Unknown Rx Ibuprofen [Motrin] 600 mg PO Q8H PRN #30 tablet 04/12/17 Unknown Rx Ondansetron [Zofran Odt] 4 mg PO Q8HR PRN #20 tab.rapdis 04/12/17 Unknown Rx Sulfamethoxazole/Trimethoprim 1 each PO BID #28 tablet 04/12/17 Unknown Rx [Bactrim DS TAB] oxyCODONE /ACETAMINOPHEN [Percocet 1 tab PO Q6HR PRN #20 tablet 04/12/17 Unknown Rx 5/325] Ciprofloxacin HCl [Ciprofloxacin 500 mg PO Q12H #14 tab 04/28/17 Unknown Rx TAB] valACYclovir [Valtrex] 500 mg PO TID #21 tab 04/28/17 Unknown Rx ED Physical Exam - General Limitations: No Limitations General appearance: alert - Neck Neck exam: Present: normal inspection. Absent: meningismus - Respiratory Respiratory exam: Present: normal lung sounds bilaterally - Cardiovascular Cardiovascular Exam: Present: regular rate, normal rhythm, normal heart sounds - GI/Abdominal GI/Abdominal exam: Present: soft, tenderness (suprapubic). Absent: guarding, rebound, rigid, normal bowel sounds, diminished bowel sounds, mass, bruit, pulsatile mass - External exam: Present: lesions (herpis lesions on her vulva). Absent: erythema , swelling, lacerations - Back Exam Back exam: Absent: CVA tenderness (R), CVA tenderness (L) - Neurological Exam Neurological exam: Present: alert, oriented X3, CN II-XII intact - Skin Skin exam: Present: warm, intact ED Course Vital Signs 04/28/17 04/28/17 04/28/17 02:00 06:18 06:19 Temperature 99.8 F H 98.4 F Pulse Rate 119 H 100 H Respiratory 17 20 20 Rate Blood Pressure 103/67 Blood Pressure 104/75 [Left] O2 Sat by Pulse 99 100 100 Oximetry 04/28/17 07:24 Temperature 98.2 F Pulse Rate 86 Respiratory 18 Rate Blood Pressure Blood Pressure 104/64 [Left] O2 Sat by Pulse 100 Oximetry ED Medical Decision Making - Lab Data Result diagrams: 04/28/17 02:42 04/28/17 02:42 Critical care attestation.: If time is entered above; I have spent that time in minutes in the direct care of this critically ill patient, excluding procedure time. ED Disposition Clinical Impression: Herpes genitalis in women, UTI (urinary tract infection), Abdominal pain Disposition: DC-01 TO HOME OR SELFCARE Is pt being admited?: No Condition: Stable Instructions: Abdominal Pain (ED), Genital Herpes Simplex (ED), Urinary Tract Infection in Women (ED) Referrals: PRIMARY CARE, [Primary Care Provider] - 3-5 Days
[2017-04-28] MEDS ORDERED: TORADOL ONE (08:59)
[2017-04-28 09:14] VITALS: BP 110/70
[2017-04-28] MEDS ORDERED: TORADOL IM ONE (09:15)
== END 2017-04-28 09:18 | disposition home or self-care (01) ==
LOC: ED 01:29
DX: N39.0 Urinary tract infection, site not specified (principal); A60.00 Herpesviral infection of urogenital system, unspecified; K21.9 Gastro-esophageal reflux disease without esophagitis
CPT/HCPCS: 36415; 80053; 81001; 81025; 83690; 84484; 85025; 93005; 93010; 96372; 99284; J0696; J1885

== ENCOUNTER 2017-06-12 13:36 | Day surgery (SDC) | payer MEDICAID ==
[~2017-06-12 13:36] MED LIST: OMNIPAQUE 300 MG/50 ML (CATH LAB) IV ONE; WATER FOR IRRIG STERILE IR ONE
[2017-06-12] MEDS ORDERED: PERCOCET 5/325 PO PRN (14:20)
[2017-06-12] MEDS ORDERED: ZOFRAN IV PRN (14:20)
--- NOTE | 2017-06-12 14:20 | Anesthesia Day of Surgery ---
Anesthesia Day of Surgery - Day of Surgery Patient Examined: Yes Patient H&P Reviewed: Yes Patient is NPO: Yes
--- NOTE | 2017-06-12 14:20 | Anesthesia Consultation ---
Anesthesia Consult and Med Hx Date of service: 06/12/17 - Airway Anesthetic Teeth Evaluation: Good ROM Head & Neck: Adequate Mental/Hyoid Distance: Adequate Mallampati Class: Class I Intubation Access Assessment: Good - Pulmonary Exam CTA: Yes - Cardiac Exam Cardiac Exam: RRR - Pre-Operative Health Status ASA Pre-Surgery Classification: ASA2 Proposed Anesthetic Plan: General - Pulmonary Hx Smoking: Yes (1 PPD) Hx Asthma: No COPD: No Hx Pneumonia: No Hx Sleep Apnea: No (BEL PRE SCREEN NEGATIVE) - Cardiovascular System Hx Hypertension: No - Central Nervous System Hx Seizures: No Hx Psychiatric Problems: No - Gastrointestinal Hx Gastroesophageal Reflux Disease: Yes (acid refulx-occas. "waits till it passes", no meds) - Endocrine Hx Renal Disease: Yes (hospitalized- pyelonephritis in x 4 days) Hx Hypothyroidism: No Hx Hyperthyroidism: No - Hematic Hx Anemia: Yes Hx Sickle Cell Disease: No - Other Systems Hx Alcohol Use: No Hx Cancer: No
[2017-06-12 14:40] LABS: Hematocrit 34.1 % (30.3-42.9); Hemoglobin 11.6 gm/dl (10.1-14.3)
[2017-06-12] MEDS ORDERED: LACTATED RINGERS 1,000 ML IV SCH (15:00)
[2017-06-12] MEDS ORDERED: VERSED IV NR (15:00)
[2017-06-12] MEDS ORDERED: PEPCID PO NR (15:00)
--- NOTE | 2017-06-12 15:51 | Post Operative Note ---
Pre-op diagnosis: retained stent Post-op diagnosis: same Findings: as above Procedure: cysto stent exchange left ureteroscopy Anesthesia: UDAY Surgeon: CHRISTIN FONG Estimated blood loss: none Pathology: none Condition: stable Disposition: PACU
[2017-06-12] MEDS ORDERED: XYLOCAINE MPF 2% ONE (15:52)
[2017-06-12] MEDS ORDERED: SUBLIMAZE ONE (15:52)
[2017-06-12] MEDS ORDERED: DIPRIVAN 10 MG/ML IV ONE (15:52)
--- NOTE | 2017-06-12 15:52 | Discharge Summary ---
Short Stay Discharge Plan Activity: other (no straining ) Weight Bearing Status: Full Weight Bearing Diet: regular Special Instructions: other (inc fluids ) Durable Medical Equipment Needed Upon Discharge: other Follow up with: PRIMARY CARE, [Primary Care Provider] - 7 Days CHRISTIN FONG MD [Staff Physician] - 7 Days
[2017-06-12] MEDS ORDERED: ANCEF/STERILE WATER 2 GM/20 ML IV NR (16:00)
[2017-06-12] MEDS ORDERED: DECADRON ONE (16:25)
[2017-06-12] MEDS ORDERED: ZOFRAN ONE (16:25)
[2017-06-12] MEDS: DILAUDID IV PRN ×6 (17:15→18:55)
--- NOTE | 2017-06-12 17:22 | Post Anesthesia Evaluation ---
- Post Anesthesia Evaluation Patient Participated: Yes Airway Patent: Yes Stable Respiratory Function: Yes Temp > 96.8F: Yes Pain Manageable: Yes Adequeate Hydration: Yes Anesthesia Complications: No
--- NOTE | 2017-06-12 17:56 | Operative Report ---
PREOPERATIVE DIAGNOSES: Poorly compliant, the patient retained stent for 5 months, history of stones. POSTOPERATIVE DIAGNOSES: Poorly compliant, the patient retained stent for 5 months, history of stones, partially encrusted stent with some periureteral inflammation, perivesical inflammation. PROCEDURE: Cystoscopy, stent exchange, left flexible ureteroscopy with extraction of small stones. SURGEON: Elton Riddle M.D. ANESTHESIA: General. FINDINGS: This is a woman who did not follow up, has the stent for 5 months, now presents for treatment. All risks and complications were discussed. DESCRIPTION OF PROCEDURE: The patient was brought to the operating room and placed on the table. Following induction of anesthesia, placed in lithotomy position, prepped and draped in usual sterile fashion. Cystourethroscopy showed the stent with some calcifications distally. We grabbed the stent at the level of the orifice, which was not calcified and brought it out of the meatus. Through the stent, we were able to place the wire, which uncoiled the upper coil and left in the renal pelvis. The stent was removed. Flexible ureteroscopy showed some small stones in the ureter with some debris and small tiny clots. These were flushed out and these were put in a test tube for the patient. The patient tolerated the procedure well. A 6-[id number] 24 cm stent was coiled in the upper pole and in the bladder, we left the string, so she would be better compliant. She was brought to recovery in stable condition. JOB# [id number] WALDO/BELEM
[2017-06-12] MEDS ORDERED: TORADOL IV ONE (18:00)
[2017-06-12] MEDS ORDERED: NORCO 5/325 PO PRN (19:15)
[2017-06-12 19:30] VITALS: BP 105/56
--- NOTE | 2017-06-13 09:22 | XRay Report ---
Single view abdomen multiple images: History: Left calculus of ureter stent exchange. Findings: Left ureteral stent appears stable. The proximal part of stent in pelvis of the ureter and distal end in bladder. There is no calculus identified in the left kidney, along the ureter and in the bladder. Impression: Stable left ureteral stent. No calculus seen.
== END 2017-06-12 19:35 | disposition home or self-care (01) ==
LOC: OR 13:36
PROVIDERS: ATTEND Urology
DX: T83.89XA Other specified complication of genitourinary prosthetic devices, implants and grafts, initial encounter (principal); N20.1 Calculus of ureter; N28.89 Other specified disorders of kidney and ureter; F17.210 Nicotine dependence, cigarettes, uncomplicated; J45.909 Unspecified asthma, uncomplicated; Y84.6 Urinary catheterization as the cause of abnormal reaction of the patient, or of later complication, without mention of misadventure at the time of the procedure; K21.9 Gastro-esophageal reflux disease without esophagitis
CPT/HCPCS: 36415; 52332; 52352; 74000; 81025; 85014; 85018; A4217; C1758; C1769; C2617; J0690; J1100; J1170; J1885; J2250; J2405; J2704; J3010; J7120; Q9967